=== PATIENT | female | born 1975 | race Caucasian/White ===

== ENCOUNTER → 2016-06-08 | Outpatient (CLI) | payer MEDICARE ==
[~2016-06-08] MED LIST: /ESOM40CA PO; /QUET10TA PO; ADV500INH INH; AMBI10TA PO; BENZ35GEL EXT; BUPR15TA PO; FLEX10TA2 PO; HYDR-3713 PO; KEFL250C6 PO; KLON1TAB PO; METH750T PO; NAPR500T2 PO; PROAAER IN; ULTR50TA PO; VITA500046 PO; ZANA4TAB PO
[2016-06-08 08:43] LABS: MEAN CORPUSCULAR HEMOGLOBIN 30.4 pg (27.0-33.0); MEAN CORPUSCULAR HGB CONC 33.9 g/dl (32.0-36.5); MEAN CORPUSCULAR VOLUME 89.8 fl (80.0-96.0); WHITE BLOOD COUNT 7.7 K/mm3 (4.0-10.0)
--- NOTE | 2016-06-08 12:30 | REP ---
Right upper extremity duplex Doppler venous ultrasound. Real time compression and duplex Doppler evaluation of the right upper extremity deep venous system is performed. The right subclavian, jugular, axillary, brachial, basilic and cephalic veins are fully compressible where accessible with transducer pressure, and demonstrate no intraluminal thrombus and normal venous waveforms. There is no evidence of deep venous thrombosis. No mass or fluid collection is seen in the region of the biceps muscle. At the site of elbow pain no sonographic abnormality is seen. Impression: No evidence of deep venous thrombosis of the right upper extremity deep vein system. Signed by Josafat Mccarty MD 06/08/2016 12:21 P
== END ==
LOC: M RAD 11:25
PROVIDERS: ATTEND Nurse Practitioner Family
DX: Z13.29 Encounter for screening for other suspected endocrine disorder (principal); R22.31 Localized swelling, mass and lump, right upper limb; E78.5 Hyperlipidemia, unspecified; Z79.899 Other long term (current) drug therapy

== ENCOUNTER 2016-11-23 13:38 | Emergency (ER) | payer MEDICARE, MEDICAID ==
[~2016-11-23] VITALS: Ht 165.1 cm; Wt 113.6 kg
[2016-11-23] MEDS ORDERED: NS 500 ML IV ONE (15:15)
[2016-11-23] MEDS ORDERED: ASPIRIN 81 MG CHEW TABLET PO ONE (15:15)
[2016-11-23] MEDS ORDERED: PERCOCET 5MG/325MG TAB PO ONE (15:15)
[2016-11-23 15:23] LABS: BASO # 0.1 K/mm3 (0.0-0.2); BASO % 1.1 % (0.0-1.0); EOS # 0.2 K/mm3 (0.0-0.50); EOS % 2.5 % (0.0-3.0); LARGE UNSTAINED CELL # 0.2 K/mm3 (0.0-0.4); LARGE UNSTAINED CELL % 1.5 % (0.0-4.0); LYMPH % 27.6 % (24.0-44.0); MEAN CORPUSCULAR HEMOGLOBIN 31.1 pg (27.0-33.0); MEAN CORPUSCULAR HGB CONC 35.7 g/dl (32.0-36.5); MEAN CORPUSCULAR VOLUME 87.2 fl (80.0-96.0); MONO # 0.5 K/mm3 (0.0-0.8); MONO % 4.5 % (0.0-5.0); NEUTROPHILS # 6.4 K/mm3 (1.8-7.7); NEUTROPHILS % 62.7 % (36.0-66.0); PLATELET COUNT, AUTOMATED 214 k/mm3 (150-450); RED CELL DISTRIBUTION WIDTH 12.4 % (11.5-14.5); WHITE BLOOD COUNT 10.2 K/mm3 (4.0-10.0)
[2016-11-23 15:36] LABS: ALBUMIN 3.4 GM/DL (3.2-5.2); ALBUMIN/GLOBULIN RATIO 0.89 (1.00-1.93); ALKALINE PHOSPHATASE 78 U/L (45-117); ALT/SGPT 26 U/L (12-78); ANION GAP 5 MEQ/L (8-16); AST/SGOT 22 U/L (15-37); BILIRUBIN,DIRECT < 0.1 MG/DL (0.0-0.2); BILIRUBIN,TOTAL 0.2 MG/DL (0.2-1.0); BLOOD UREA NITROGEN 6 MG/DL (7-18); CARBON DIOXIDE LEVEL 28 MEQ/L (21-32); CHLORIDE LEVEL 108 MEQ/L (98-107); GLOMERULAR FILTRATION RATE > 60.0 (>60); GLUCOSE, FASTING 105 MG/DL (70-105); SODIUM LEVEL 141 MEQ/L (136-145); TOTAL PROTEIN 7.2 GM/DL (6.4-8.2)
[2016-11-23] MEDS ORDERED: ISOVUE-370 76% 100ML VIAL (Q9967) As Ordered ONE (16:06)
--- NOTE | 2016-11-23 17:11 | REP ---
CT pulmonary angiogram: With IV contrast. History: Question pulmonary embolus. Comparison CT study 10/05/2009. Contrast dose: 75 cc's of Isovue [address] technique: Helical scanning is acquired and overlapping 1.5 mm and contiguous 3 mm axial images are reformatted. In addition, a 3-D work station is deployed to generate thick slab maximum intensity projection images in sagittal and coronal imaging projections. CT pulmonary angiographic findings: There is good opacification of the pulmonary arterial tree. There is no CT evidence of pulmonary embolism. Thoracic aorta enhances homogeneously and is normal in caliber and homogeneous in contrast enhancement. No pleural or pericardial effusion is seen. No hilar or mediastinal mass or adenopathy is observed. No infiltrate is seen. There are multiple subcentimeter noncalcified pulmonary nodules bilaterally which are unchanged from the 2009 prior study and are therefore felt to be benign. No new pulmonary nodule is appreciated. No new infiltrate is seen. Clips are noted in the gallbladder fossa post cholecystectomy. No bony destructive lesion is seen. Impression: 1. No CT evidence of pulmonary embolus. 2. Multiple subcentimeter noncalcified pulmonary nodules are all unchanged from the September [address] consistent with benign nodules. 3. Otherwise unremarkable CT pulmonary angiogram. Signed by Murali Sheppard MD 11/23/2016 07:37 P
[2016-11-23 18:34] VITALS: BP 137/74
--- NOTE | 2016-11-25 08:12 | ECGEPIP ---
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
== END 2016-11-23 19:16 | disposition home or self-care (01) ==
LOC: M ED 13:38
DX: R07.9 Chest pain, unspecified (principal); R94.31 Abnormal electrocardiogram [ECG] [EKG]; R91.1 Solitary pulmonary nodule; J45.909 Unspecified asthma, uncomplicated; F17.200 Nicotine dependence, unspecified, uncomplicated; Z79.899 Other long term (current) drug therapy; Z91.040 Latex allergy status; Z88.0 Allergy status to penicillin
CPT/HCPCS: 71275; 80048; 80076; 82550; 82553; 83690; 83880; 84484; 85025; 93005; 93041; 94760; 99285; Q9967

== ENCOUNTER → 2017-07-24 | Outpatient (CLI) | payer MEDICARE, MEDICAID | LOC: M RAD 13:32 | DX: R06.02 Shortness of breath (principal) | CPT/HCPCS: 71046 ==

== ENCOUNTER 2017-09-24 07:49 | Emergency (ER) | payer MEDICARE, MEDICAID ==
[2017-09-24] MEDS: METOCLOPRAMIDE INJ 10MG/2ML VIAL (J2765) IV (08:15)
[2017-09-24] MEDS: NS 1,000 ML IV (08:15)
[2017-09-24 08:33] LABS: BASO % 0.5 % (0.0-1.0); EOS # 0.2 10^3/uL (0.0-0.50); EOS % 2.4 % (0.0-3.0); HEMATOCRIT 41.9 % (36.0-47.0); HEMOGLOBIN 14.8 g/dl (12.0-15.5); IMMATURE GRANULOCYTE % 0.3 % (0-3.0); LYMPH # 1.5 10^3/uL (1.5-4.5); LYMPH % 18.4 % (24.0-44.0); MEAN CORPUSCULAR HEMOGLOBIN 30.8 pg (27.0-33.0); MEAN CORPUSCULAR HGB CONC 35.3 g/dl (32.0-36.5); MEAN CORPUSCULAR VOLUME 87.1 fl (80.0-96.0); MONO # 0.7 10^3/uL (0.0-0.8); MONO % 8.7 % (0.0-5.0); NEUTROPHILS # 5.5 10^3/uL (1.8-7.7); NEUTROPHILS % 69.7 % (36.0-66.0); PLATELET COUNT, AUTOMATED 216 10^3/uL (150-450); RED BLOOD COUNT 4.81 10^6/uL (4.00-5.40); RED CELL DISTRIBUTION WIDTH 11.9 % (11.5-14.5); WHITE BLOOD COUNT 7.9 10^3/uL (4.0-10.0)
[2017-09-24 08:41] LABS: AMORPHOUS SEDIMENT SMALL (NEGATIVE); APPEARANCE, URINE HAZY (CLEAR); BACTERIA, URINE AUTO NEGATIVE (NEGATIVE); BILIRUBIN, URINE AUTO NEGATIVE (NEGATIVE); BLOOD, URINE BLOOD 1+ (NEGATIVE); COLOR, URINE YELLOW (YELLOW); GLUCOSE, URINE (UA) AUTO NEGATIVE (NEGATIVE); KETONE, URINE AUTO NEGATIVE (NEGATIVE); LEUKOCYTE ESTERASE, URINE AUTO NEGATIVE (NEGATIVE); MUCUS, URINE SMALL (NEGATIVE); NITRITE, URINE AUTO NEGATIVE (NEGATIVE); PROTEIN, URINE AUTO NEGATIVE (NEGATIVE); RBC, URINE AUTO 4 /HPF (0-3); SPECIFIC GRAVITY URINE AUTO 1.024 (1.002-1.035); SQUAMOUS EPITHELIAL CELL UR AU 2 /HPF (0-6); WBC, URINE AUTO 1 /HPF (0-3)
[2017-09-24] MEDS: KETOROLAC 30 MG/ML VIAL (J1885) IV (08:45)
[2017-09-24 08:59] LABS: CONTROL LINE UCG INT CTR LINE PRESENT; URINE PREG TEST NEGATIVE (NEGATIVE)
[2017-09-24 09:08] LABS: ALBUMIN 3.5 GM/DL (3.2-5.2); ALBUMIN/GLOBULIN RATIO 0.97 (1.00-1.93); ALKALINE PHOSPHATASE 92 U/L (45-117); ALT/SGPT 45 U/L (12-78); AMYLASE 64 U/L (25-115); ANION GAP 9 MEQ/L (8-16); AST/SGOT 53 U/L (7-37); BILIRUBIN,DIRECT 0.2 MG/DL (0.0-0.2); BILIRUBIN,TOTAL 0.5 MG/DL (0.2-1.0); BLOOD UREA NITROGEN 11 MG/DL (7-18); C REACTIVE PROTEIN QUANTITATIV 1.27 MG/DL (0.00-0.30); CALCIUM LEVEL 8.4 MG/DL (8.5-10.1); CARBON DIOXIDE LEVEL 23 MEQ/L (21-32); CHLORIDE LEVEL 110 MEQ/L (98-107); CPK CREATINE PHOSPHOKINASE 103 U/L (26-192); CREATININE FOR GFR 0.75 MG/DL (0.55-1.30); GLOMERULAR FILTRATION RATE > 60.0 (>58); GLUCOSE, FASTING 108 MG/DL (70-100); LIPASE 573 U/L (73-393); POTASSIUM SERUM 4.2 MEQ/L (3.5-5.1); SODIUM LEVEL 142 MEQ/L (136-145); TOTAL PROTEIN 7.1 GM/DL (6.4-8.2); TROPONIN I < 0.02 NG/ML (< 0.10)
[2017-09-24 09:09] LABS: CK-MB VALUE MASS < 1.0 NG/ML (<3.6); MB/CK RELATIVE INDEX 0.97 (< OR =4)
[2017-09-24] MEDS: GASTROGRAFIN SOLUTION 30ML PO ×2 (09:15→10:00)
[2017-09-24] MEDS ORDERED: ISOVUE-370 76% 100ML VIAL (Q9967) As Ordered (10:18)
== END 2017-09-24 12:22 | disposition home or self-care (01) ==
LOC: M ED 07:49
DX: R10.9 Unspecified abdominal pain (principal); R11.2 Nausea with vomiting, unspecified; R19.7 Diarrhea, unspecified; I45.19 Other right bundle-branch block; R91.8 Other nonspecific abnormal finding of lung field; J45.909 Unspecified asthma, uncomplicated; K21.9 Gastro-esophageal reflux disease without esophagitis; Z72.0 Tobacco use; Z88.0 Allergy status to penicillin; Z91.040 Latex allergy status
CPT/HCPCS: Q9963

== ENCOUNTER → 2017-10-03 | Outpatient (REF) | payer MEDICARE, MEDICAID ==
[2017-10-03 19:49] LABS: CHOLESTEROL LEVEL 164 MG/DL (<200); CHOLESTEROL RISK RATIO 5.125 (<5); HDL CHOLESTEROL 32 MG/DL (>40); NON-HDL-C 132 MG/DL; TRIGLYCERIDES LEVEL 170 MG/DL (<150)
== END ==
LOC: M LAB REF 18:49
DX: R79.89 Other specified abnormal findings of blood chemistry (principal); R10.12 Left upper quadrant pain; R74.8 Abnormal levels of other serum enzymes
CPT/HCPCS: 80061

== ENCOUNTER 2018-02-10 06:12 | Emergency (ER) | payer MEDICARE, MEDICAID ==
[2018-02-10] MEDS: diazePAM 5 MG TAB PO (07:25)
[2018-02-10] MEDS: KETOROLAC 60 MG/2 ML VIAL (J1885) IM (07:26)
[2018-02-10] MEDS: ACETAMINOPH W/CODEINE #3 TAB UD PO ×2 (08:15→08:17)
[2018-02-10] MEDS: methylPREDNISolone INJ 125 MG/2 ML VIAL (J2930) IM (08:29)
== END 2018-02-10 09:04 | disposition home or self-care (01) ==
LOC: M ED 06:12
DX: S39.012A Strain of muscle, fascia and tendon of lower back, initial encounter (principal); X50.0XXA Overexertion from strenuous movement or load, initial encounter; Y92.099 Unspecified place in other non-institutional residence as the place of occurrence of the external cause; Y93.89 Activity, other specified; Y99.9 Unspecified external cause status; K21.9 Gastro-esophageal reflux disease without esophagitis; J45.909 Unspecified asthma, uncomplicated; Z72.0 Tobacco use; Z79.899 Other long term (current) drug therapy; Z88.5 Allergy status to narcotic agent; Z91.040 Latex allergy status; Z88.0 Allergy status to penicillin
CPT/HCPCS: J1885

== ENCOUNTER → 2018-02-15 | Outpatient (CLI) | payer MEDICARE, MEDICAID | LOC: M RAD 14:34 | DX: M51.26 Other intervertebral disc displacement, lumbar region (principal); M12.88 Other specific arthropathies, not elsewhere classified, other specified site; G89.29 Other chronic pain | CPT/HCPCS: 72148 ==

== ENCOUNTER → 2018-02-18 | Outpatient (CLI) | payer MEDICARE ==
[2018-02-18 13:07] LABS: HEMATOCRIT 45.5 % (36.0-47.0); HEMOGLOBIN 15.6 g/dl (12.0-15.5); MEAN CORPUSCULAR HEMOGLOBIN 30.7 pg (27.0-33.0); MEAN CORPUSCULAR HGB CONC 34.3 g/dl (32.0-36.5); MEAN CORPUSCULAR VOLUME 89.6 fl (80.0-96.0); PLATELET COUNT, AUTOMATED 273 10^3/uL (150-450); RED BLOOD COUNT 5.08 10^6/uL (4.00-5.40); WHITE BLOOD COUNT 8.6 10^3/uL (4.0-10.0)
[2018-02-18 13:53] LABS: ESTIMATED AVERAGE GLUCOSE 117 MG/DL (60-110); HEMOGLOBIN A1c 5.7 %
[2018-02-18 14:01] LABS: ALBUMIN 3.4 GM/DL (3.2-5.2); ALBUMIN/GLOBULIN RATIO 0.89 (1.00-1.93); ALKALINE PHOSPHATASE 82 U/L (45-117); ALT/SGPT 24 U/L (12-78); ANION GAP 7 MEQ/L (8-16); AST/SGOT 16 U/L (7-37); BILIRUBIN,TOTAL 0.3 MG/DL (0.2-1.0); BLOOD UREA NITROGEN 7 MG/DL (7-18); CALCIUM LEVEL 8.9 MG/DL (8.5-10.1); CARBON DIOXIDE LEVEL 26 MEQ/L (21-32); CHLORIDE LEVEL 107 MEQ/L (98-107); CHOLESTEROL LEVEL 188 MG/DL (<200); CHOLESTEROL RISK RATIO 6.064 (<5); CREATININE FOR GFR 0.73 MG/DL (0.55-1.30); GLOMERULAR FILTRATION RATE > 60.0 (>58); GLUCOSE, FASTING 79 MG/DL (70-100); HDL CHOLESTEROL 31 MG/DL (>40); LDL CHOLESTEROL 104 MG/DL (<100); NON-HDL-C 157 MG/DL; POTASSIUM SERUM 4.3 MEQ/L (3.5-5.1); SODIUM LEVEL 140 MEQ/L (136-145); TOTAL 25(OH) VITAMIN D 25.3 NG/ML (30.0-100.0); TOTAL PROTEIN 7.2 GM/DL (6.4-8.2); TRIGLYCERIDES LEVEL 267 MG/DL (<150)
== END ==
LOC: M LAB 12:30
DX: I10 Essential (primary) hypertension (principal); E03.9 Hypothyroidism, unspecified
CPT/HCPCS: 71046

== ENCOUNTER → 2018-06-19 | Outpatient (CLI) | payer MEDICARE ==
[~2018-06-19] MED LIST changes: +PRED20TA PO; +ROBA750T4 PO; +TRAM50TA2 PO; +ZOFR4TAB14 PO
--- NOTE | 2018-06-19 14:27 | REPMRS ---
Patient History The patient states she has not had a clinical breast exam in over a year. Family history of breast cancer in maternal cousin, breast cancer at age 60 in paternal aunt, breast cancer in paternal grandmother. 3D TOMOSYNTHESIS WAS PERFORMED. Digital Mammo Screening Bilat: June 19, 2018 - Exam #: [id number] Bilateral CC and MLO view(s) were taken. Technologist: Bailey Allen, Technologist FINDINGS: There are scattered fibroglandular densities. There is no evidence of cancer on this mammogram. Large coarse benign appearing calcifications are present. Assessment: BI-RADS/ACR category 2 mammogram. Benign Findings. Recommendation Routine screening mammogram of both breasts in 1 year (for women over age 40). This mammogram was interpreted with the aid of an FDA-approved computer-aided dectection system. Electronically Signed By: Josafat Mccarty MD 06/19/18 [id number]
== END ==
LOC: M RAD 12:42
PROVIDERS: ATTEND Family Medicine
DX: Z12.31 Encounter for screening mammogram for malignant neoplasm of breast (principal); Z80.3 Family history of malignant neoplasm of breast

== ENCOUNTER → 2018-07-10 | Outpatient (REF) | payer MEDICARE, MEDICAID ==
[~2018-07-10] MED LIST changes: -/ESOM40CA PO; -/QUET10TA PO; +NEXI1CAP3 PO; +SERO1TAB PO
[2018-07-10 13:20] LABS: BASO # 0.1 10^3/uL (0.0-0.2); BASO % 1.3 % (0.0-1.0); EOS # 0.2 10^3/uL (0.0-0.50); EOS % 2.8 % (0.0-3.0); HEMATOCRIT 43.1 % (36.0-47.0); HEMOGLOBIN 14.9 g/dl (12.0-15.5); LYMPH # 2.4 10^3/uL (1.5-4.5); LYMPH % 34.8 % (24.0-44.0); MEAN CORPUSCULAR HEMOGLOBIN 30.5 pg (27.0-33.0); MEAN CORPUSCULAR HGB CONC 34.6 g/dl (32.0-36.5); MEAN CORPUSCULAR VOLUME 88.1 fl (80.0-96.0); MONO # 0.8 10^3/uL (0.0-0.8); MONO % 11.8 % (0.0-5.0); NEUTROPHILS # 3.4 10^3/uL (1.8-7.7); PLATELET COUNT, AUTOMATED 205 10^3/uL (150-450); RED BLOOD COUNT 4.89 10^6/uL (4.00-5.40); WHITE BLOOD COUNT 6.8 10^3/uL (4.0-10.0)
[2018-07-10 13:38] LABS: ALBUMIN 3.6 GM/DL (3.2-5.2); ALT/SGPT 26 U/L (12-78); BILIRUBIN,TOTAL 0.4 MG/DL (0.2-1.0); BLOOD UREA NITROGEN 8 MG/DL (7-18); CALCIUM LEVEL 9.1 MG/DL (8.5-10.1); CARBON DIOXIDE LEVEL 27 MEQ/L (21-32); CHLORIDE LEVEL 104 MEQ/L (98-107); CHOLESTEROL LEVEL 123 MG/DL (<200); CHOLESTEROL RISK RATIO 3.416 (<5); CREATININE FOR GFR 0.82 MG/DL (0.55-1.30); FREE T4 1.18 NG/DL (0.76-1.46); GLOMERULAR FILTRATION RATE > 60.0 (>58); GLUCOSE, FASTING 106 MG/DL (70-100); HDL CHOLESTEROL 36 MG/DL (>40); LDL CHOLESTEROL 64 MG/DL (<100); NON-HDL-C 87 MG/DL; POTASSIUM SERUM 3.5 MEQ/L (3.5-5.1); SODIUM LEVEL 138 MEQ/L (136-145); TRIGLYCERIDES LEVEL 113 MG/DL (<150)
[2018-07-10 13:41] LABS: TOTAL 25(OH) VITAMIN D 30.2 NG/ML (30.0-100.0)
[2018-07-10 13:49] LABS: HEMOGLOBIN A1c 5.6 %
[2018-07-12 00:08] LABS: Lyme Disease IgG/IgM Antibodie <0.91 ISR (0.00-0.90); Lyme Disease IgM Ab Quantitati <0.80 index (0.00-0.79)
== END ==
LOC: M LAB REF 12:41
PROVIDERS: ATTEND Family Medicine
DX: Z00.01 Encounter for general adult medical examination with abnormal findings (principal); Z13.228 Encounter for screening for other metabolic disorders

== ENCOUNTER 2018-10-06 19:00 | Emergency (ER) | payer MEDICARE, MEDICAID ==
[~2018-10-06] VITALS: Ht 165.1 cm; Wt 130.4 kg
[2018-10-06] MEDS ORDERED: MELO15TA28 PO (19:14)
[2018-10-06] MEDS ORDERED: TYLETAB14 PO (19:14)
[2018-10-06] MEDS ORDERED: TIZA4CAP PO (19:14)
[2018-10-06] MEDS ORDERED: SIMV20TA2 PO (19:14)
[2018-10-06] MEDS ORDERED: BENZ200C70 PO (19:14)
[2018-10-06] MEDS ORDERED: LEXA1TAB PO (19:14)
[2018-10-06] MEDS ORDERED: TRIA37.53 PO (19:14)
[2018-10-07 00:18] LABS: BLOOD UREA NITROGEN 10 MG/DL (7-18); CALCIUM LEVEL 8.7 MG/DL (8.5-10.1); CARBON DIOXIDE LEVEL 29 MEQ/L (21-32); CHLORIDE LEVEL 104 MEQ/L (98-107); CREATININE FOR GFR 0.76 MG/DL (0.55-1.30); GLOMERULAR FILTRATION RATE > 60.0 (>58); GLUCOSE, FASTING 89 MG/DL (70-100); POTASSIUM SERUM 3.6 MEQ/L (3.5-5.1); SODIUM LEVEL 141 MEQ/L (136-145)
[2018-10-07 00:37] LABS: BASO # 0.1 10^3/uL (0.0-0.2); BASO % 0.9 % (0.0-1.0); EOS # 0.3 10^3/uL (0.0-0.50); EOS % 2.6 % (0.0-3.0); HEMATOCRIT 40.8 % (36.0-47.0); HEMOGLOBIN 14.5 g/dl (12.0-15.5); LYMPH # 3.8 10^3/uL (1.5-4.5); MEAN CORPUSCULAR HGB CONC 35.5 g/dl (32.0-36.5); MEAN CORPUSCULAR VOLUME 87.4 fl (80.0-96.0); MONO # 0.9 10^3/uL (0.0-0.8); NEUTROPHILS # 4.5 10^3/uL (1.8-7.7); NEUTROPHILS % 47.2 % (36.0-66.0); PLATELET COUNT, AUTOMATED 236 10^3/uL (150-450); RED BLOOD COUNT 4.67 10^6/uL (4.00-5.40); WHITE BLOOD COUNT 9.6 10^3/uL (4.0-10.0)
--- NOTE | 2018-10-07 01:04 | REPVR ---
EXAM: US Duplex Bilateral Lower Extremity Veins EXAM DATE/TIME: 10/06/2018 12:24 AM CLINICAL HISTORY: 43 years old, female; Pain; Leg, upper; Bilateral; Additional info: Bilateral le edema and pain, fam HX of dvt TECHNIQUE: Imaging protocol: Real-time duplex ultrasound of the Bilateral Lower Extremities with 2-D rivas scale, color Doppler flow and spectral waveform analysis. Complete exam focused on the bilateral lower extremity veins. COMPARISON: No relevant prior studies available. FINDINGS: Bilateral common femoral veins, superficial femoral veins (femoral veins), greater saphenous veins and popliteal veins are evaluated. Calf veins distal to the popliteal are not imaged Doppler evaluation shows normal venous flow with respiratory variation and augmentation with distal compression. No intraluminal filling defect. Doppler waveforms and flow directionality are normal. No abnormal focal fluid collections present. IMPRESSION: No evidence of deep venous thrombosis in visualized lower extremity veins. Electronically signed by: Scar Pierre On 10/07/2018 01:03:56 AM
[2018-10-07] MEDS ORDERED: ISOVUE-370 76% 100ML VIAL (Q9967) As Ordered ONE (01:17)
--- NOTE | 2018-10-07 01:41 | REPVR ---
EXAM: CT Angiography Chest With Contrast EXAM DATE/TIME: 10/07/2018 1:10 AM CLINICAL HISTORY: 43 years old, female; Chest pain; Type not specified; Additional info: Chest pain and dyspnea, elevated d dimer TECHNIQUE: Imaging protocol: Axial computed tomographic angiography images of the chest with intravenous contrast using CT angiography protocol. Coronal and sagittal reformatted images were created and reviewed. 3D rendering: MIP reconstructed images were created and reviewed. Radiation optimization: All CT scans Contrast material: ISO; Contrast volume: 75 ml; Contrast route: AC; Other technique: automated exposure control; mA and/or kV adjustment per patient size (includes targeted exams where dose is matched to clinical indication); or iterative reconstruction. COMPARISON: CT ANGIO CHEST 11/23/2016 4:30 PM FINDINGS: Pulmonary arteries: Peripheral pulmonary artery evaluation limited by cardiac and respiratory motion artifact. Central pulmonary arteries show no intraluminal defect suggestive of clot. Aorta: No thoracic aortic aneurysm or dissection. Lungs: Pulmonary vascular/interstitial pattern does not suggest active pulmonary edema. No suspicious lung mass or air space process. No central endobronchial lesion. Pleural space: No pleural effusion or pneumothorax. Heart: No evidence of pericardial effusion. Lymph nodes: No enlarged mediastinal lymph nodes. Bones/joints: Bony structures show no acute fracture or destructive process. Soft tissues: Unremarkable. IMPRESSION: 1. No evidence of acute pulmonary embolus. 2. No other acute or concerning focal intrathoracic abnormality. Electronically signed by: Scar Pierre On 10/07/2018 01:40:44 AM
[2018-10-07 02:00] VITALS: BP 112/56
== END 2018-10-07 02:16 | disposition home or self-care (01) ==
LOC: M ED 19:00
DX: I83.813 Varicose veins of bilateral lower extremities with pain (principal); Z83.2 Family history of diseases of the blood and blood-forming organs and certain disorders involving the immune mechanism; J45.909 Unspecified asthma, uncomplicated; J44.9 Chronic obstructive pulmonary disease, unspecified; K21.9 Gastro-esophageal reflux disease without esophagitis; Z72.0 Tobacco use; Z79.899 Other long term (current) drug therapy; Z88.0 Allergy status to penicillin; Z91.040 Latex allergy status
CPT/HCPCS: 71275; 80048; 85025; 85379; 93970; 99284; Q9967

== ENCOUNTER → 2019-03-20 | Outpatient (REF) | payer MEDICARE, MEDICAID ==
[~2019-03-20] MED LIST changes: +BENZ200C70 PO; +LEXA1TAB PO; +MELO15TA28 PO; +SIMV20TA22 PO; +TIZA4CAP PO; +TRIA37.53 PO; +TYLETAB14 PO
[2019-03-20 12:40] LABS: ALBUMIN 3.5 GM/DL (3.2-5.2); ALT/SGPT 23 U/L (12-78); BILIRUBIN,TOTAL 0.5 MG/DL (0.2-1.0); BLOOD UREA NITROGEN 11 MG/DL (7-18); CALCIUM LEVEL 9.3 MG/DL (8.5-10.1); CARBON DIOXIDE LEVEL 28 MEQ/L (21-32); CHLORIDE LEVEL 103 MEQ/L (98-107); CHOLESTEROL LEVEL 143 MG/DL (<200); CHOLESTEROL RISK RATIO 4.085 (<5); CREATININE FOR GFR 0.86 MG/DL (0.55-1.30); GLOMERULAR FILTRATION RATE > 60.0 (>58); GLUCOSE, FASTING 98 MG/DL (70-100); HDL CHOLESTEROL 35 MG/DL (>40); LDL CHOLESTEROL 88 MG/DL (<100); NON-HDL-C 108 MG/DL; POTASSIUM SERUM 3.8 MEQ/L (3.5-5.1); SODIUM LEVEL 140 MEQ/L (136-145); TOTAL PROTEIN 7.4 GM/DL (6.4-8.2); TRIGLYCERIDES LEVEL 101 MG/DL (<150)
[2019-03-20 12:47] LABS: HEMOGLOBIN A1c 5.8 %
== END ==
LOC: M LAB REF 12:00
PROVIDERS: ATTEND Family Medicine
DX: R73.03 Prediabetes (principal); E78.5 Hyperlipidemia, unspecified

== ENCOUNTER 2019-05-13 16:45 | Emergency (ER) | payer MEDICARE, MEDICAID ==
[~2019-05-13] VITALS: Ht 165.1 cm; Wt 133.5 kg
[2019-05-13 16:46] VITALS: BP 136/77
[2019-05-13] MEDS ORDERED: GABA-843 PO (17:00)
[2019-05-13 17:42] LABS: BASO # 0.1 10^3/uL (0.0-0.2); BASO % 0.8 % (0.0-1.0); EOS # 0.3 10^3/uL (0.0-0.5); EOS % 3.5 % (0.0-3.0); HEMATOCRIT 41.8 % (36.0-47.0); HEMOGLOBIN 14.5 g/dl (12.0-15.5); LYMPH # 3.1 10^3/uL (1.5-5.0); LYMPH % 34.8 % (24.0-44.0); MEAN CORPUSCULAR HGB CONC 34.7 g/dl (32.0-36.5); MEAN CORPUSCULAR VOLUME 89.5 fl (80.0-96.0); MONO # 0.7 10^3/uL (0.0-0.8); MONO % 7.8 % (0.0-5.0); NEUTROPHILS # 4.6 10^3/uL (1.5-8.5); NEUTROPHILS % 52.8 % (36.0-66.0); PLATELET COUNT, AUTOMATED 225 10^3/uL (150-450); RED BLOOD COUNT 4.67 10^6/uL (4.00-5.40); WHITE BLOOD COUNT 8.8 10^3/uL (4.0-10.0)
[2019-05-13 18:08] LABS: HCG, SERUM QUALITATIVE NEGATIVE (NEGATIVE)
[2019-05-13 18:14] LABS: ALBUMIN 3.4 GM/DL (3.2-5.2); ALT/SGPT 48 U/L (12-78); BILIRUBIN,DIRECT 0.1 MG/DL (0.0-0.2); BILIRUBIN,TOTAL 0.2 MG/DL (0.2-1.0); BLOOD UREA NITROGEN 9 MG/DL (7-18); CALCIUM LEVEL 9.3 MG/DL (8.5-10.1); CARBON DIOXIDE LEVEL 28 MEQ/L (21-32); CHLORIDE LEVEL 103 MEQ/L (98-107); CK-MB VALUE MASS 1.2 NG/ML (<3.6); CPK CREATINE PHOSPHOKINASE 235 U/L (26-192); CREATININE FOR GFR 0.78 MG/DL (0.55-1.30); GLOMERULAR FILTRATION RATE > 60.0 (>58); GLUCOSE, FASTING 87 MG/DL (70-100); LIPASE 147 U/L (73-393); MB/CK RELATIVE INDEX 0.51 (< OR =4); POTASSIUM SERUM 3.4 MEQ/L (3.5-5.1); SODIUM LEVEL 139 MEQ/L (136-145); TOTAL PROTEIN 7.1 GM/DL (6.4-8.2); TROPONIN I < 0.02 NG/ML (< 0.10)
--- NOTE | 2019-05-13 20:21 | ECGEPIP ---
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
== END 2019-05-13 18:32 | disposition left against medical advice (07) ==
LOC: M ED 16:45
DX: Z53.21 Procedure and treatment not carried out due to patient leaving prior to being seen by health care provider (principal)

== ENCOUNTER → 2019-06-18 | Outpatient (CLI) | payer MEDICARE, MEDICAID ==
[~2019-06-18] MED LIST changes: +GABA-843 PO; +ISOVUE-370 76% 100ML VIAL (Q9967) As Ordered ONE
--- NOTE | 2019-06-18 15:05 | REPVR ---
PROCEDURE INFORMATION: Exam: CT Head Without And With Contrast Exam date and time: 06/18/2019 2:36 PM Age: 44 years old Clinical indication: Pain; Headache; Migraine; Additional info: Migraine with aura TECHNIQUE: Imaging protocol: Computed tomography of the head without and with intravenous contrast. Radiation optimization: All CT scans at this facility use at least one of these dose optimization techniques: automated exposure control; mA and/or kV adjustment per patient size (includes targeted exams where dose is matched to clinical indication); or iterative reconstruction. Contrast material: ISOVUE 370; Contrast volume: 75 ml; Contrast route: IV; COMPARISON: No relevant prior studies available. FINDINGS: Brain: Examination of the brain demonstrates normal structure and attenuation.The cortical tanner / white matter interfaces are preserved throughout the brain.No acute infarction, masses or hemorrhage is seen. No acute intracranial abnormality is identified.There is no hyperdense MCA sign. Examination of the posterior fossa demonstrates no significant abnormality. Ventricles: The ventricular system is not dilated and is appropriate for the patient's age. Bones/joints: Unremarkable. No acute fracture. Sinuses: Visualized sinuses are unremarkable. No fluid levels. Mastoid air cells: Visualized mastoid air cells are well aerated. Soft tissues: Unremarkable. IMPRESSION: 1. No acute infarction, masses or hemorrhage is seen. No acute intracranial abnormality is identified. 2. No abnormal contrast enhancement is seen. Electronically signed by: Alexis Mccurdy On 06/18/2019 15:05:10 PM
== END ==
LOC: M RAD 14:22
PROVIDERS: ATTEND Family Medicine Addiction Medicine
DX: G43.109 Migraine with aura, not intractable, without status migrainosus (principal)
CPT/HCPCS: 70470; Q9967

== ENCOUNTER 2019-08-17 21:46 | Emergency (ER) | payer MEDICARE, MEDICAID ==
[~2019-08-17] VITALS: Ht 165.1 cm; Wt 126.4 kg
[~2019-08-17 21:46] MED LIST changes: -ISOVUE-370 76% 100ML VIAL (Q9967) As Ordered ONE
[2019-08-17 21:59] VITALS: BP 127/58
[2019-08-17] MEDS ORDERED: NORCO, ANEXSIA 5/325MG TABLET (HYDROcodone/ACETAMINOPHEN) PO ONE (22:30)
--- NOTE | 2019-08-18 00:34 | REP ---
Clinical: Pain and swelling with recent trauma. Technique: AP and lateral views of the left tibia / fibula. Findings: No acute fracture or dislocation. Skeletal structures, joint spaces, and surrounding soft tissues appear normal. Impression: No acute fracture or dislocation. Electronically Signed by Elie Forde MD 08/18/2019 12:26 A
== END 2019-08-17 22:33 | disposition home or self-care (01) ==
LOC: M ED 21:46
DX: S80.10XA Contusion of unspecified lower leg, initial encounter (principal); W18.09XA Striking against other object with subsequent fall, initial encounter; Y92.009 Unspecified place in unspecified non-institutional (private) residence as the place of occurrence of the external cause; I10 Essential (primary) hypertension; F41.9 Anxiety disorder, unspecified; F32.9 Major depressive disorder, single episode, unspecified; E78.5 Hyperlipidemia, unspecified; F17.200 Nicotine dependence, unspecified, uncomplicated; Z90.49 Acquired absence of other specified parts of digestive tract; Z98.890 Other specified postprocedural states; Z79.899 Other long term (current) drug therapy; Z88.0 Allergy status to penicillin; Z91.040 Latex allergy status

== ENCOUNTER → 2019-09-25 | Outpatient (REF) | payer MEDICARE, MEDICAID ==
[2019-09-25 18:02] LABS: BASO # 0.1 10^3/uL (0.0-0.2); BASO % 0.9 % (0.0-1.0); EOS # 0.4 10^3/uL (0.0-0.5); EOS % 4.1 % (0.0-3.0); HEMOGLOBIN 14.6 g/dl (12.0-15.5); LYMPH # 2.8 10^3/uL (1.5-5.0); MEAN CORPUSCULAR HEMOGLOBIN 30.7 pg (27.0-33.0); MEAN CORPUSCULAR HGB CONC 34.8 g/dl (32.0-36.5); MEAN CORPUSCULAR VOLUME 88.4 fl (80.0-96.0); MONO # 0.6 10^3/uL (0.0-0.8); MONO % 6.3 % (0.0-5.0); NEUTROPHILS # 4.9 10^3/uL (1.5-8.5); NEUTROPHILS % 56.5 % (36.0-66.0); PLATELET COUNT, AUTOMATED 251 10^3/uL (150-450); RED BLOOD COUNT 4.75 10^6/uL (4.00-5.40); WHITE BLOOD COUNT 8.7 10^3/uL (4.0-10.0)
[2019-09-25 18:17] LABS: ALBUMIN 3.5 GM/DL (3.2-5.2); ALT/SGPT 23 U/L (12-78); BILIRUBIN,TOTAL 0.4 MG/DL (0.2-1.0); BLOOD UREA NITROGEN 9 MG/DL (7-18); CALCIUM LEVEL 9.4 MG/DL (8.5-10.1); CARBON DIOXIDE LEVEL 28 MEQ/L (21-32); CHLORIDE LEVEL 103 MEQ/L (98-107); CHOLESTEROL LEVEL 134 MG/DL (<200); CHOLESTEROL RISK RATIO 4.322 (<5); GLOMERULAR FILTRATION RATE > 60.0 (>58); GLUCOSE, FASTING 105 MG/DL (70-100); HDL CHOLESTEROL 31 MG/DL (>40); LDL CHOLESTEROL 76 MG/DL (<100); NON-HDL-C 103 MG/DL; POTASSIUM SERUM 3.3 MEQ/L (3.5-5.1); SODIUM LEVEL 139 MEQ/L (136-145); TOTAL PROTEIN 7.3 GM/DL (6.4-8.2); TRIGLYCERIDES LEVEL 134 MG/DL (<150)
[2019-09-25 18:22] LABS: HEMOGLOBIN A1c 5.9 %
== END ==
LOC: M LAB REF 17:03
PROVIDERS: ATTEND Family Medicine Addiction Medicine
DX: Z00.01 Encounter for general adult medical examination with abnormal findings (principal); R58 Hemorrhage, not elsewhere classified; G43.109 Migraine with aura, not intractable, without status migrainosus; M54.5 Low back pain; R73.9 Hyperglycemia, unspecified; E07.9 Disorder of thyroid, unspecified; E78.00 Pure hypercholesterolemia, unspecified

== ENCOUNTER 2021-02-22 20:28 | Emergency (ER) | payer MEDICARE, MEDICAID ==
[~2021-02-22] VITALS: Ht 165.1 cm; Wt 137.3 kg
[~2021-02-22 20:28] MED LIST changes: +GABA-282 PO; -GABA-843 PO
[2021-02-22 20:29] VITALS: BP 118/60
--- OUTSIDE RECORDS SUMMARY | 2021-02-22 20:35 | CCD | Continuity of Care Document ---
Author Author Courtney DILLON DPF[facility] Organization Unknown Address [address] [place] [address], [address] [place] [address] Phone [phone] Care Team Providers Care Art Museum Docent Name Role Phone Cory DO, Ju AUTM [phone] MD Bridger Yen AUTM [phone] Problems Active Problems Provider Date Pain in limb Cory Dillon DPM Onset: 12/05/2020 Callosity Cory Dillon DPM Onset: 12/05/2020 Ingrowing nail Cory Dillon DPM Onset: 12/05/2020 Social History Type Date Description Comments Sex Unknown ETOH Use Denies alcohol use Tobacco Use Start: Unknown Has smoked for 20+ years with 1 PPD habit Allergies and adverse reactions Active Allergies Criticality Reaction | Severity Comments Date Penicillin Unable to assess criticality 07/06/2016 Latex Unable to assess criticality hives 07/06/2016 Medications Active Medications SIG Qnty Indications Ordering Provide r Date Clindamycin HCL 300mg Capsules 1 tab by mouth three times a day 21caps Cory Dillon DPM Ammonium Lactate 12% Cream apply to feet daily 140gm Cory Dillon DPM 11/29/2020 Neomycin/Polymyxin/Hydrocortisone (Otic) 3.5-16944-4 Solution apply one drop to base of nail after betadine soaks 10ml Cory Dillon DPM 11/29/2020 Urea 20 Intensive Hydrating Cream 20% Cream apply to callus on feet daily 85units Cory arana DPM 10/17/2017 Proair HFA 108(90Base) mcg/Act Aer osol Inhale 2 Puffs By Mouth Every 4 Hours If Needed Unknown Gabapentin 300mg Capsules Take 1 Capsule By Mouth Three Times A Day Unknown Ondansetron 4mg Tablets Dispers Dis One T PO Q 6 H prn N Unknown Hydrocodone Bitartrate/Acetaminophen 5-325mg Tablets Take 1 Tablet By Mouth Every 4 To 6 Hour s as Needed For Severe Pain. Maximum Daily Dose Is 3 Tablets Unknown Bupropion Hydrochloride ER (XL) 150mg Tablets ER 24HR Take 1 Tablet By Mouth Every Day Unknown Escitalopram Oxalate 20mg Tablets Take 1 Tablet By Mouth Every Day Unknown Medroxyprogesterone Acetate 150mg/ ml Katina Inject In The Muscle Every 12 Weeks Unknown Simvastatin 20mg Tablets Take 1 Tablet By Mouth Daily Unknown Triamterene/Hydrochlorothiazide 37.5-25mg Capsules Take 1 Capsule By Mouth Daily Unknown Topiramate 50mg Tablets TK 1 T PO QHS Unknown Escitalopram Oxalate 10mg Tablets TK 1 T PO qd Unknown Immunizations Description No Information Available Vital Signs Date Vital Result Comment 11/29/2020 9:21am Height 65 inches 5'5" Weight 278.00 lb BP Systolic 118 mmHg BP Diastolic 62 mmHg Heart Rate 77 /min BMI (Body Mass Index) 46.3 kg/m2 10/17/2017 2:02pm Height 65 inches 5'5" Weight 270.00 lb BP Systolic 150 mmHg BP Diastolic 80 mmHg Heart Rate 80 /min BMI (Body Mass Index) 44.9 kg/m2 Results Description No Information Available Procedures Date Code Description Status 11/29/2020 63296 Office/Outpatient New Low [facility] 30 -44 Minutes Completed 11/29/2020 98621 Excise Nail Bed & Matrix Complet ed 11/29/2020 13958 Excise Nail Bed & Matrix Complet ed Medical Devices Description No Information Available Encounters Type Date Location Provider Dx Diagnosis Office Visit 11/29/2020 9:15a [place] [facility] Cory Dillon DPM M79.676 Pain in unspecified toe(s) L84 Corns and callosities L60.0 Ingrowing nail Assessments Date Code Description Provider 11/29/2020 M79.676 Pain in unspecified toe(s) Caden Dillon DPM 11/29/2020 L84 Corns and callosities Cory Dillon DPM 11/29/2020 L60.0 Ingrowing nail Cory Dillon DPM Plan of Treatment Future Appointment(s):* 02/28/2021 9:30 am - Cory Dillon DPM at [facility] Functional Status Description No Information Available Mental Status Description No Information Available Referrals Description No Information Available
--- OUTSIDE RECORDS SUMMARY | 2021-02-22 20:35 | CCD | Continuity of Care Document ---
Author Author Courtney DILLON DPM Organization Unknown Address [address] [place] [address], [address] [place] [address] Phone [phone] Care Team Providers Care Material Flow Engineer Name Role Phone Cory DO, Ju AUTM [phone] MD Bridger Yen AUTM [phone] Problems Active Problems Provider Date Pain in [...] 140gm Cory Dillon DPM 11/29/2020 Neomycin/Polymyxin/Hydrocortisone (Otic) 3.5-61213-1 Solution apply one drop to base of [...] Available Procedures Date Code Description Status 11/29/2020 78781 Office/Outpatient New Low [facility] 30 -44 Minutes Completed 11/29/2020 27810 Excise Nail Bed & Matrix Complet ed 11/29/2020 35379 Excise Nail Bed & Matrix Complet ed Medical Devices Description No Information Available Encounters Type Date Location Provider Dx Diagnosis Office Visit 12/23/2020 2:15p [place] [facility] Cory Dillon DPM Z48.89 Encounter for other specified surgical aftercare Office Visit 11/29/2020 9:15a [place] [facility] Cory Dillon DPM M79.676 Pain in unspecified toe(s) L84 Corns and callosities L60.0 Ingrowing nail Assessments Date Code Description Provider 12/23/2020 Z48.89 Encounter for other specified [facility] aftercare Cory Dillon DPM 11/29/2020 M79.676 Pain in unspecified toe(s) Caden Dillon DPM 11/29/2020 L84 Corns and callosities Cory Dillon DPM 11/29/2020 L60.0 Ingrowing nail Cory Dillon DPM Plan of Treatment Future Appointment(s):* 02/28/2021 9:30 am - Cory Dillon DPM at [facility] Functional Status Description No Information Available Mental Status Description No Information Available Referrals Description No Information Available
--- OUTSIDE RECORDS SUMMARY | 2021-02-22 20:35 | CCD | Continuity of Care Document ---
Author Author Courtney DILLON DP[facility]ro Organization Unknown Address [address] [place] [address], [address] [place] [address] Phone [phone] Care Team Providers Care Professor Of Oceanography Name Role Phone Cory DO, Ju AUTM [phone] MD Bridger Yen AUTM [phone] Problems Active Problems Provider Date Hammer toe Cory Dillon DPM Onset: 07/23/2016 Dystrophia unguium Cory Dillon DPM Onset: 07/23/2016 Social History Type Date Description Comments Sex Unknown ETOH Use Denies alcohol use Tobacco Use Start: Unknown Has smoked for 20+ years with 1 PPD habit Allergies, Adverse Reactions, Alerts Active Allergies Criticality Reaction | Severity Comments Date Penicillin Unable to assess criticality 07/06/2016 Latex Unable to assess criticality hives 07/06/2016 Medications Active Medications SIG Qnty Indications Ordering Provide r Date Ammonium Lactate 12% Cream apply to feet daily 140gm Cory Dillon DPM 11/29/2020 Neomycin/Polymyxin/Hydrocortisone (Otic) 3.5-16434-4 Solution apply one drop to base of [...] kg/m2 Results Description No Information Available Procedures Description No Information Available Medical Devices Description No Information Available Encounters Description No Information Available Assessments Description No Information Available Plan of Treatment Future Appointment(s):* 02/28/2021 9:30 am - Cory Dillon DPM at [facility] Functional Status Description No Information Available Mental Status Description No Information Available Referrals Description No Information Available
--- OUTSIDE RECORDS SUMMARY | 2021-02-22 20:35 | CCD | Continuity of Care Document ---
Author Author Courtney DILLON DPFlor Organization Unknown Address [address] [place] [address], [address] [place] [address] Phone [phone] Care Team Providers Care Graphite Disk Assembler Name Role Phone Cory DO, Ju AUTM [phone] MD Bridger Yen AUTM [phone] Problems Active Problems Provider Date Hammer toe [...] 140gm Cory Dillon DPM 11/29/2020 Neomycin/Polymyxin/Hydrocortisone (Otic) 3.5-89438-9 Solution apply one drop to base of [...] Available Procedures Date Code Description Status 11/29/2020 40915 Office/Outpatient New Low [facility] 30 -44 Minutes Completed 11/29/2020 38899 Excise Nail Bed & Matrix Complet ed 11/29/2020 14823 Excise Nail Bed & Matrix Complet ed Medical Devices Description No Information Available Encounters Type Date Location Provider Dx Diagnosis Office Visit 11/29/2020 9:15a [place] [facility] Cory Dillon DPM M79.676 Pain in unspecified toe(s) L84 Corns and callosities L60.0 Ingrowing nail Assessments Date Code Description Provider 11/29/2020 M79.676 Pain in unspecified toe(s) Caden Dillon DPM 11/29/2020 L84 Corns and callosities Cory Dillon DPM 11/29/2020 L60.0 Ingrowing nail Cory Dillon DPM Plan of Treatment Future Appointment(s):* 02/28/2021 9:30 am - Cory Dillon DPM at [facility] Functional Status Description No Information Available Mental Status Description No Information Available Referrals Description No Information Available
--- OUTSIDE RECORDS SUMMARY | 2021-02-22 20:35 | CCD | Continuity of Care Document ---
Author Author Courtney DILLON DPFlor Organization Unknown Address [address] [place] [address], [address] [place] [address] Phone [phone] Care Team Providers Care Brazer Resistance Name Role Phone Cory DO, Ju AUTM [phone] MD Bridger Yen AUTM [phone] Problems Active Problems Provider Date Hammer toe [...] 140gm Cory Dillon DPM 11/29/2020 Neomycin/Polymyxin/Hydrocortisone (Otic) 3.5-42594-4 Solution apply one drop to base of [...] 9:30 am - Cory Dillon DPM at [facility] Functional Status Description No Information Available Mental Status Description No Information Available Referrals Description No Information Available
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
--- OUTSIDE RECORDS SUMMARY | 2021-02-22 20:35 | CCD | Continuity of Care Document ---
Author Author Courtney DILLON [facility] Organization Unknown Address [address] [place] [address], [address] [place] [address] Phone [phone] Care Team Providers Care Customer Service Analyst Name Role Phone Cory DO, Ju AUTM [phone] MD Bridger Yen AUTM [phone] Problems Active Problems Provider Date Hammer toe [...] 140gm Cory Dillon DPM 11/29/2020 Neomycin/Polymyxin/Hydrocortisone (Otic) 3.5-16487-2 Solution apply one drop to base of [...] 9:30 am - Cory Dillon DPM at [facility] Functional Status Description No Information Available Mental Status Description No Information Available Referrals Description No Information Available
--- OUTSIDE RECORDS SUMMARY | 2021-02-22 20:36 | CCD ---
Author Author [facility] Organization [facility] Address Unknown Phone Unavailable Care Team Providers Care Promotional Marketing Analyst Name Role Phone Rosio Yen MD Unavailable Unavailable Rosio Yen MD Unavailable Unavailable Rosio Yen MD Unavailable Unavailable Rosio Yen MD Unavailable Unavailable Rosio Yen MD Unavailable Unavailable Rosio Yen MD Unavailable Unavailable Rosio Yen MD Unavailable Unavailable Rosio Yen MD Unavailable Unavailable Rosio Yen MD Unavailable Unavailable Rosio Yen MD Unavailable Unavailable Rosio Yen MD Unavailable Unavailable Rosio Yen MD Unavailable Unavailable Rosio Yen MD Unavailable Unavailable Rosio Yen MD Unavailable Unavailable Rosio Yen MD Unavailable Unavailable Rosio Yen MD Unavailable Unavailable Rosio Yen MD Unavailable Unavailable Rosio Yen MD Unavailable Unavailable Rosio Yen MD Unavailable Unavailable Rosio Yen MD Unavailable Unavailable Rosio Yen MD Unavailable Unavailable Rosio Yen MD Unavailable Unavailable Rosio Yen MD Unavailable Unavailable Rosio Yen MD Unavailable Unavailable Rosio Yen MD Unavailable Unavailable Rosio Yen MD Unavailable Unavailable Rosio Yen MD Unavailable Unavailable Rosio Yen MD Unavailable Unavailable Rosio Yen MD Unavailable Unavailable Rosio Yen MD Unavailable Unavailable Rosio Yen MD Unavailable Unavailable Rosio Yen MD Unavailable Unavailable Rosio Yen MD Unavailable Unavailable Rosio Yen MD Unavailable Unavailable Rosio Yen MD Unavailable Unavailable Rosio Yen MD Unavailable Unavailable Rosio Yen MD Unavailable Unavailable Rosio Yen MD Unavailable Unavailable Rosio Yen MD Unavailable Unavailable Rosio Yen MD Unavailable Unavailable Rosio Yen MD Unavailable Unavailable Rosio Yen MD Unavailable Unavailable Rosio Yen MD Unavailable Unavailable Rosio Yen MD Unavailable Unavailable Rosio Yen MD Unavailable Unavailable Rosio Yen MD Unavailable Unavailable Rosio Yen MD Unavailable Unavailable Rosio Yen MD Unavailable Unavailable Rosio Yen MD Unavailable Unavailable Rosio Yen MD Unavailable Unavailable Rosio Yen MD Unavailable Unavailable Rosio Yen MD Unavailable Unavailable Rosio Yen MD Unavailable Unavailable Rosio Yen MD Unavailable Unavailable Rosio Yen MD Unavailable Unavailable Rosio Yen MD Unavailable Unavailable Rosio Yen MD Unavailable Unavailable Rosio Yen MD Unavailable Unavailable Rosio Yen MD Unavailable Unavailable Rosio Yen MD Unavailable Unavailable Rosio Yen MD Unavailable Unavailable Rosio Yen MD Unavailable Unavailable Rosio Yen MD Unavailable Unavailable Rosio Yen MD Unavailable Unavailable Rosio Yen MD Unavailable Unavailable Rosio Yen MD Unavailable Unavailable Rosio Yen MD Unavailable Unavailable Rosio Yen MD Unavailable Unavailable Rosio Yen MD Unavailable Unavailable Rosio Yen MD Unavailable Unavailable Rosio Yen MD Unavailable Unavailable Rosio Yen MD Unavailable Unavailable Rosio Yen MD Unavailable Unavailable Rosio Yen MD Unavailable Unavailable Farshad, Rosio Sparks MD Unavailable Unavailable Farshad, Rosio Sparks MD Unavailable Unavailable Farshad, Rosio Sparks MD Unavailable Unavailable Farshad, Rosio Sparks MD Unavailable Unavailable Farshad, Rosio Sparks MD Unavailable Unavailable Farshad, Rosio Sparks MD Unavailable Unavailable Farshad, Rosio Sparks MD Unavailable Unavailable Farshad, Rosio Sparks MD Unavailable Unavailable Rosio Yen MD Unavailable Unavailable Farshad, Rosio Sparks MD Unavailable Unavailable Farshad, Rosio Sparks MD Unavailable Unavailable Farshad, Rosio Saprks MD Unavailable Unavailable Yen, Rosio Sparks MD Unavailable Unavailable Yen, Rosio Sparks MD Unavailable Unavailable Yen, Rosio Sparks MD Unavailable Unavailable Yen, Rosio Sparks MD Unavailable Unavailable Yen, Rosio Sparks MD Unavailable Unavailable Farshad, Rosio Sparks MD Unavailable Unavailable Yen, Rosio Sparks MD Unavailable Unavailable Kathrine Zelaya Unavailable Kathrine Zelaya Unavailable MAJAGUS, R ROXANA DPM Unavailable Unavailable MAJAK, R ROXANA DPM Unavailable Unavailable MAJAK, R ROXANA DPM Unavailable Unavailable MAJAK, R ROXANA DPM Unavailable Unavailable MAJAK, R ROXANA DPM Unavailable Unavailable MAJAK, R ROXANA DPM Unavailable Unavailable MAJAK, R ROXANA DPM Unavailable Unavailable MAJAK, R ROXANA DPM Unavailable Unavailable MAJAK, R ROXANA DPM Unavailable Unavailable MAJAK, R ROXANA DPM Unavailable Unavailable MAJAK, R ROXANA DPM Unavailable Unavailable MAJAK, R ROXANA DPM Unavailable Unavailable MAJAK, R ROXANA DPM Unavailable Unavailable MAJAK, R ROXANA DPM Unavailable Unavailable MAJAK, R ROXANA DPM Unavailable Unavailable MAJAK, R ROXANA DPM Unavailable Unavailable MAJAK, R ROXANA DPM Unavailable Unavailable MAJAK, R ROXANA DPM Unavailable Unavailable MAJAK, R ROXANA DPM Unavailable Unavailable MAJAK, R ROXANA DPM Unavailable Unavailable MAJAK, R ROXANA DPM Unavailable Unavailable MAJAK, R ROXANA DPM Unavailable Unavailable MAJAK, R ROXANA DPM Unavailable Unavailable MAJAK, R ROXANA DPM Unavailable Unavailable MAJAK, R ROXANA DPM Unavailable Unavailable MAJAK, R ROXANA DPM Unavailable Unavailable MAJAK, R ROXANA DPM Unavailable Unavailable MAJAK, R ROXANA DPM Unavailable Unavailable MAJAK, R ROXANA DPM Unavailable Unavailable MAJAK, R ROXANA DPM Unavailable Unavailable MAJAK, R ROXANA DPM Unavailable Unavailable MAJAK, R ROXANA DPM Unavailable Unavailable Rosio Yen MD Unavailable Unavailable Rosio Yen MD Unavailable Unavailable Rosio Yen MD Unavailable Unavailable Rosio Yen MD Unavailable Unavailable Rosio Yen MD Unavailable Unavailable Rosio Yen MD Unavailable Unavailable Rosio Yen MD Unavailable Unavailable Rosio Yen MD Unavailable Unavailable Rosio Yen MD Unavailable Unavailable Rosio Yen MD Unavailable Unavailable Rosio Yen MD Unavailable Unavailable Rosio Yen MD Unavailable Unavailable Rosio Yen MD Unavailable Unavailable Rosio Yen MD Unavailable Unavailable Rosio Yen MD Unavailable Unavailable Rosio Yen MD Unavailable Unavailable Rosio Yen MD Unavailable Unavailable Rosio Yen MD Unavailable Unavailable Rosio Yen MD Unavailable Unavailable Rosio Yen MD Unavailable Unavailable Rosio Yen MD Unavailable Unavailable Rosio Yen MD Unavailable Unavailable Rosio Yen MD Unavailable Unavailable Rosio Yen MD Unavailable Unavailable Rosio Yen MD Unavailable Unavailable Rosio Yen MD Unavailable Unavailable Rosio Yen MD Unavailable Unavailable Rosio Yen MD Unavailable Unavailable Rosio Yen MD Unavailable Unavailable Rosio Yen MD Unavailable Unavailable Rosio Yen MD Unavailable Unavailable Rosio Yen MD Unavailable Unavailable Rosio Yen MD Unavailable Unavailable Rosio Yen MD Unavailable Unavailable Rosio Yen MD Unavailable Unavailable Rosio Yen MD Unavailable Unavailable Rosio Yen MD Unavailable Unavailable Rosio Yen MD Unavailable Unavailable Rosio Yen MD Unavailable Unavailable Rosio Yen MD Unavailable Unavailable Rosio Yen MD Unavailable Unavailable Rosio Yen MD Unavailable Unavailable Rosio Yen MD Unavailable Unavailable Rosio Yen MD Unavailable Unavailable Rosio Yen MD Unavailable Unavailable Rosio Yen MD Unavailable Unavailable Rosio Yen MD Unavailable Unavailable Rosio Yen MD Unavailable Unavailable Rosio Yen MD Unavailable Unavailable Rosio Yen MD Unavailable Unavailable Rosio Yen MD Unavailable Unavailable Rosio Yen MD Unavailable Unavailable Rosio Yen MD Unavailable Unavailable Rosio Yen MD Unavailable Unavailable Rosio Yen MD Unavailable Unavailable Rosio Yen MD Unavailable Unavailable Rosio Yen MD Unavailable Unavailable Rosio Yen MD Unavailable Unavailable Rosio Yen MD Unavailable Unavailable Rosio Yen MD Unavailable Unavailable Rosio Yen MD Unavailable Unavailable Rosio Yen MD Unavailable Unavailable Rosio Yen MD Unavailable Unavailable Rosio Yen MD Unavailable Unavailable Rosio Yen MD Unavailable Unavailable Rosio Yen MD Unavailable Unavailable Rosio Yen MD Unavailable Unavailable Rosio Yen MD Unavailable Unavailable Rosio Yen MD Unavailable Unavailable Rosio Yen MD Unavailable Unavailable Rosio Yen MD Unavailable Unavailable YenRosio MD Unavailable Unavailable Yne, Rosio Sparks MD Unavailable Unavailable Yen, D Bridger MD Unavailable Unavailable Yen, D Bridger MD Unavailable Unavailable Yen, D Bridger MD Unavailable Unavailable Yen, D Bridger MD Unavailable Unavailable Yen, D Bridger MD Unavailable Unavailable Yen, D Bridger MD Unavailable Unavailable Yen, D Bridger MD Unavailable Unavailable Yen, D Bridger MD Unavailable Unavailable Yen, D Bridger MD Unavailable Unavailable Yen, D Bridger MD Unavailable Unavailable Yen, D Bridger MD Unavailable Unavailable Yen, D Bridger MD Unavailable Unavailable Yen, D Bridger MD Unavailable Unavailable Yen, D Bridger MD Unavailable Unavailable Yen, D Bridger MD Unavailable Unavailable Yen, D Bridger MD Unavailable Unavailable Yen, D Bridger MD Unavailable Unavailable Yen, D Bridger MD Unavailable Unavailable Yen, D Bridger MD Unavailable Unavailable Yen, D Bridger MD Unavailable Unavailable Re-disclosure Warning The records that you are about to access may contain information from federally-assisted alcohol or drug abuse programs. If such information is present, then the following federally mandated warning applies: This information has been disclosed to you from records protected by federal confidentiality rules (42 CFR part 2). The federal rules prohibit you from making any further disclosure of this information unless further disclosure is expressly permitted by the written consent of the person to whom it pertains or as otherwise permitted by 42 CFR part 2. A general authorization for the release of medical or other information is NOT sufficient for this purpose. The Federal rules restrict any use of the information to criminally investigate or prosecute any alcohol or drug abuse patient.The records that you are about to access may contain highly sensitive health information, the redisclosure of which is protected by Article 27-F of the [facility] Public Health law. If you continue you may have access to information: Regarding HIV / AIDS; Provided by facilities licensed or operated by the [facility] Office of Mental Health; or Provided by the [facility] Office for People With Developmental Disabilities. If such information is present, then the following [facility] mandated warning applies: This information has been disclosed to you from confidential records which are protected by state law. State law prohibits you from making any further disclosure of this information without the specific written consent of the person to whom it pertains, or as otherwise permitted by law. Any unauthorized further disclosure in violation of state law may result in a fine or nursing home sentence or both. A general authorization for the release of medical or other information is NOT sufficient authorization for further disc losure. Family History Family Member Name Family Member Gender Family Member Status Date o f Status Description Data Source(s) Unknown Male Problem [facility] ([facility]) Unknown Male Problem [facility] ([facility] Encounters Encounter Providers Location Date Indications Data Source(s ) Bridger Yen MD: [address] [place] [phone], Ph. Attender: Bridger Yen MD [facility] Medical 02/01/2021 12:00:00 AM EDT [facility] ([facility]) Office Visit Attender: ROXANA DILLON [facility] Office 12/01 02:15:00 PM EDT [facility] ([facility] Outpatient 11/29/2020 06:48:14 PM EDT - 021 08:33:02 PM EDT [facility] ([facility]) Outpatient Attender: ROXANA DILLON [facility] Office 11/01 09:15:00 AM EDT [facility] ([facility] Bridger Yen MD: [address] [place], [place] [phone], Ph. Attender: Bridger Yen MD [facility] Medical 11/09/2020 12:00:00 AM EDT [facility] ([facility]) Bridger Yen MD: [address] [place] [phone], Ph. Attender: Bridger Yen MD [facility] Medical 11/09/2020 12:00:00 AM EDT [facility] ([facility]) Bridger Yen MD: [address] [place] [phone], Ph. Attender: Bridger Yen MD [facility] Medical 10/28/2020 12:00:00 AM EDT [facility] ([facility]) Bridger Yen MD: [address] [place] [address], Ph. Attender: Bridger Yen MD [facility] Medical 10/28/2020 12:00:00 AM EDT [facility] ([facility]) Bridger Yen MD: [address] [place] [address], Ph. Attender: Bridger Yen MD [facility] Medical 10/28/2020 12:00:00 AM EDT [facility] ([facility]) Bridger Yen MD: [address] [place] [address], Ph. Attender: Bridger Yen MD [facility] Medical 10/07/2020 12:00:00 AM EDT [facility] ([facility]) Bridger Yen MD: [address] [place] [address], Ph. Attender: Bridger Yen MD [facility] Medical 10/07/2020 12:00:00 AM EDT [facility] ([facility]) Bridger Yen MD: [address] [place] [address], Ph. Attender: Bridger Yen MD [facility] Medical 10/07/2020 12:00:00 AM EDT [facility] ([facility]) Bridger Yen MD: [address] [place] [address], Ph. Attender: Bridger Yen MD [facility] Medical 10/07/2020 12:00:00 AM EDT [facility] ([facility]) Bridger Yen MD: [address] [place] [address]2 [address], Ph. Attender: Bridger Yen MD [facility] Medical 08/08/2020 12:00:00 AM EDT [facility] ([facility]) Bridger Yen MD: [address] [place] [address], Ph. Attender: Bridger Yen MD [facility] Medical 08/08/2020 12:00:00 AM EDT [facility] ([facility]) Bridger Yen MD: [address] [place] [address], Ph. Attender: Bridger Yen MD [facility] Medical 08/08/2020 12:00:00 AM EDT [facility] ([facility]) Bridger Yen MD: [address] [place] [address], Ph. Attender: Bridger Yen MD [facility] Medical 08/08/2020 12:00:00 AM EDT [facility] ([facility]) Bridger Yen MD: [address] [place] [address], Ph. Attender: Bridger Yen MD [facility] Medical 08/08/2020 12:00:00 AM EDT [facility] ([facility]) Bridger Yen MD: [address] [place] [address], Ph. Attender: Bridger Yen MD [facility] Medical 06/30/2020 12:00:00 AM EDT [facility] ([facility]) Kathrine Zelaya [facility]: [address] [place] [address], Ph. Attender: Kathrine Zelaya [facility] Medical 06/30/2020 12:00:00 AM EDT [facility] ([facility]) Bridger Yen MD: [address] [place] [address], Ph. Attender: Bridger Yen MD [facility] Medical 06/30/2020 12:00:00 AM EDT [facility] ([facility]) Kathrine Zelaya LMSW: [address] [place] [address], Ph. Attender: Kathrine Zelaya [facility] Medical 06/30/2020 12:00:00 AM EDT [facility] ([facility]) Bridger Yen MD: [address] [place] [address], Ph. Attender: Bridger Yen MD [facility] Medical 06/30/2020 12:00:00 AM EDT [facility] ([facility]) Kathrine Zelaya LMSW: [address] [place] [address], Ph. Attender: Kathrine Zelaya [facility] Medical 06/30/2020 12:00:00 AM EDT [facility] ([facility]) Bridger Yen MD: [address] [place] [address]1 [address], Ph. Attender: Bridger Yen MD [facility] Medical 06/30/2020 12:00:00 AM EDT [facility] ([facility]) Kathrine Zelaya LMSW: [address] [place] [address], Ph. Attender: Kathrine Zelaya [facility] Medical 06/30/2020 12:00:00 AM EDT [facility] ([facility]) Bridger Yen MD: [address] [place] [address], Ph. Attender: Bridger Yen MD [facility] Medical 06/30/2020 12:00:00 AM EDT [facility] ([facility]) Kathrine Zelaya LMSW: [address] [place] [address], Ph. Attender: Kathrine Zelaya [facility] Medical 06/30/2020 12:00:00 AM EDT [facility] ([facility]) Bridger Yen MD: [address] [place] [address], Ph. Attender: Bridger Yen MD [facility] Medical 06/30/2020 12:00:00 AM EDT [facility] ([facility]) Kathrine Zelaya, [facility]: [address] [place] [address], Ph. Attender: Kathrine Zelaya [facility] Medical 06/30/2020 12:00:00 AM EDT [facility] ([facility]) Bridger Yen MD: [address] [place] [address], Ph. Attender: Bridger Yen MD [facility] Medical 05/09/2020 12:00:00 AM EST [facility] ([facility]) Bridger Yen MD: [address] [place] [address], Ph. Attender: Bridger Yen MD [facility] Medical 05/09/2020 12:00:00 AM EST [facility] ([facility]) Bridger Yen MD: [address] [place] [address], Ph. Attender: Bridger Yen MD [facility] Medical 05/09/2020 12:00:00 AM EST [facility] ([facility]) Bridger Yen MD: [address] [place] [address], Ph. Attender: Bridger Yen MD [facility] Medical 05/09/2020 12:00:00 AM EST [facility] ([facility]) Bridger Yen MD: [address] [place] [address], Ph. Attender: Bridger Yen MD [facility] Medical 05/09/2020 12:00:00 AM EST [facility] ([facility]) Bridger Yen MD: [address] [place] [address], Ph. Attender: Bridger Yen MD [facility] Medical 05/09/2020 12:00:00 AM EST [facility] ([facility]) Bridger Yen MD: [address] [place] [address], Ph. Attender: Bridger Yen MD [facility] Medical 05/09/2020 12:00:00 AM EST [facility] ([facility]) Bridger Yen MD: [address] [place] [address], Ph. Attender: Bridger Yen MD [facility] Medical 04/15/2020 12:00:00 AM EST [facility] ([facility]) Bridger Yen MD: [address] [place] [address], Ph. Attender: Bridger Yen MD [facility] Medical 04/15/2020 12:00:00 AM EST [facility] ([facility]) Bridger Yen MD: [address] [place] [address], Ph. Attender: Bridger Yen MD [facility] Medical 04/15/2020 12:00:00 AM EST [facility] ([facility]) Bridger Yen MD: [address] [place] [address], Ph. Attender: Bridger Yen MD [facility] Medical 04/15/2020 12:00:00 AM EST [facility] ([facility]) Bridger Yen MD: [address] [place] [address], Ph. Attender: Bridger Yen MD [facility] Medical 04/15/2020 12:00:00 AM EST [facility] ([facility]) Bridger Yen MD: [address] [place] [address], Ph. Attender: Bridger Yen MD [facility] Medical 04/15/2020 12:00:00 AM EST [facility] ([facility]) Bridger Yen MD: [address] [place] [address], Ph. Attender: Bridger Yen MD [facility] Medical 04/15/2020 12:00:00 AM EST [facility] ([facility]) Bridger Yen MD: [address] [place] [address], Ph. Attender: Bridger Yen MD [facility] Medical 04/15/2020 12:00:00 AM EST [facility] ([facility]) Outpatient Attender: Bridger Yen MD 01/27/2020 05:21:00 PM EDT [facility] Outpatient Attender: Bridger Yen MD 01/05/2020 01:19:01 PM EDT [facility] Outpatient Attender: Bridger Yen MD 12/25/2019 01:23:59 PM EDT [facility] Outpatient Attender: Bridger Yen MD 12/25/2019 11:23:00 AM EDT [facility] Immunizations Vaccine Date Status Description Data Source(s) New in 2011. IIV4 02/01/2021 12:06:00 PM EDT completed .5 mL [facility] ([facility]) COVID-19 VACCINE Moderna 10/10/2020 12:00:00 AM EDT completed SDSIIS Vaccine Series Complete: YESThis Data wa s Submitted to [facility] Via [employer]. COVID-19 VACCINE Moderna 09/12/2020 12:00:00 AM EDT completed NYSIIS Vaccine Series Complete: NOThis Data was Submitted to [facility] Via [employer]. New in 2011. IIV4 12/25/2019 12:00:00 AM EDT completed 0.5 mL [facility] ([facility]) New in 2011. IIV4 12/25/2019 12:00:00 AM EDT completed 0.5 mL [facility] ([facility]) New in 2011. IIV4 12/25/2019 12:00:00 AM EDT completed 0.5 mL [facility] ([facility]) New in 2011. IIV4 12/25/2019 12:00:00 AM EDT completed 0.5 mL [facility] ([facility]) New in 2011. IIV4 12/25/2019 12:00:00 AM EDT completed 0.5 mL [facility] ([facility]) New in 2011. IIV4 12/25/2019 12:00:00 AM EDT completed 0.5 mL [facility] ([facility]) New in 2011. IIV4 12/25/2019 12:00:00 AM EDT completed .5 mL [facility] ([facility]) Medications Medication Brand Name Start Date Product Form Dose Route Admi nistrative Instructions Pharmacy Instructions Status Indications Reaction Description Data Source(s) Clindamycin 300 MG Oral Capsule Clindamycin HCL 12/23/2020 12:00:00 A M EDT ORAL active [facility] ammonium lactate 120 MG/ML Topical Cream Ammonium Lactate 11/29/2020 12:00:00 AM EDT active [facility] ([facility] Hydrocortisone 10 MG/ML / Neomycin 3.5 M G/ML / Polymyxin B 52218 UNT/ML Otic Solution Neomycin/Polymyxin/Hydrocortisone (Otic) 11/29/2020 12:00:00 AM EDT active [facility] ([facility] Azithromycin 250 MG Oral Tablet azithrom ycin 250 mg tablet TK 2 TS PO FOR 1 DAY THEN TK 1 T PO D FOR 4 DAYS azithromycin 250 mg tablet TK 2 TS PO FO R 1 DAY THEN TK 1 T PO D FOR 4 DAYS completed azithromycin 250 MG Oral Tablet [facility] ([facility]) Azithromycin 250 MG Oral Tablet azithrom ycin 250 mg tablet TK 2 TS PO FOR 1 DAY THEN TK 1 T PO D FOR 4 DAYS azithromycin 250 mg tablet TK 2 TS PO FO R 1 DAY THEN TK 1 T PO D FOR 4 DAYS completed azithromycin 250 MG Oral Tablet [facility] ([facility]) Azithromycin 250 MG Oral Tablet azithrom ycin 250 mg tablet TK 2 TS PO FOR 1 DAY THEN TK 1 T PO D FOR 4 DAYS azithromycin 250 mg tablet TK 2 TS PO FO R 1 DAY THEN TK 1 T PO D FOR 4 DAYS completed azithromycin 250 MG Oral Tablet [facility] ([facility]) Escitalopram 10 MG Oral Tablet escitalopram 10 mg tabl et TK 1 T PO QD escitalopram 10 mg tablet TK 1 T PO QD completed escitalopram 10 MG Oral Tablet [facility] ([facility]) varenicline 1 MG Oral Tablet Chantix Con tinuing Month Box 1 mg tablet TK UTD AFTER STARTER PACK IS COMPLETED Chantix Continuing Month Box 1 mg tablet TK UTD AFTER STARTER PACK IS COMPLETED comple ramírez varenicline 1 MG Oral Tablet [facility] ([facility]) Azithromycin 250 MG Oral Tablet azithrom ycin 250 mg tablet TK 2 TS PO FOR 1 DAY THEN TK 1 T PO D FOR 4 DAYS azithromycin 250 mg tablet TK 2 TS PO FO R 1 DAY THEN TK 1 T PO D FOR 4 DAYS completed azithromycin 250 MG Oral Tablet [facility] ([facility]) Azithromycin 250 MG Oral Tablet azithrom ycin 250 mg tablet TK 2 TS PO FOR 1 DAY THEN TK 1 T PO D FOR 4 DAYS azithromycin 250 mg tablet TK 2 TS PO FO R 1 DAY THEN TK 1 T PO D FOR 4 DAYS completed azithromycin 250 MG Oral Tablet [facility] ([facility]) Escitalopram 10 MG Oral Tablet escitalopram 10 mg tabl et TK 1 T PO QD escitalopram 10 mg tablet TK 1 T PO QD completed escitalopram 10 MG Oral Tablet [facility] ([facility]) Ciprofloxacin 3 MG/ML / Dexamethasone 1 MG/ML Otic Suspension [Ciprodex] Ciprodex 0.3 %-0.1 % ear drops,suspension INT 3 DROPS INTO EACH EAR CANAL TID FOR 7 DAYS Ciprodex 0.3 %-0.1 % ear drops,suspensio n INT 3 DROPS INTO EACH EAR CANAL TID FOR 7 DAYS completed ciprofloxacin 3 MG/ML / dexamethasone 1 MG/ML Otic Suspension [Ciprodex] [facility] ([facility]) Ciprofloxacin 3 MG/ML / Dexamethasone 1 MG/ML Otic Suspension [Ciprodex] Ciprodex 0.3 %-0.1 % ear drops,suspension INT 3 DROPS INTO EACH EAR CANAL TID FOR 7 DAYS Ciprodex 0.3 %-0.1 % ear drops,suspensio n INT 3 DROPS INTO EACH EAR CANAL TID FOR 7 DAYS completed ciprofloxacin 3 MG/ML / dexamethasone 1 MG/ML Otic Suspension [Ciprodex] [facility] ([facility]) Cyclobenzaprine hydrochloride 10 MG Oral Tablet cyclobenzaprine 10 mg tablet TK 1 T PO TID PRF SPASMS cyclobenzaprine 10 mg tablet TK 1 T PO TID PRF SPASMS completed cyclobenzaprine hydroc hloride 10 MG Oral Tablet [facility] ([facility]) Cyclobenzaprine hydrochloride 10 MG Oral Tablet cyclobenzaprine 10 mg tablet TK 1 T PO TID PRF SPASMS cyclobenzaprine 10 mg tablet TK 1 T PO TID PRF SPASMS completed cyclobenzaprine hydroc hloride 10 MG Oral Tablet [facility] ([facility]) Cyclobenzaprine hydrochloride 10 MG Oral Tablet cyclobenzaprine 10 mg tablet TK 1 T PO TID PRF SPASMS cyclobenzaprine 10 mg tablet TK 1 T PO TID PRF SPASMS completed cyclobenzaprine hydroc hloride 10 MG Oral Tablet [facility] ([facility]) Azithromycin 250 MG Oral Tablet azithrom ycin 250 mg tablet TK 2 TS PO FOR 1 DAY THEN TK 1 T PO D FOR 4 DAYS azithromycin 250 mg tablet TK 2 TS PO FO R 1 DAY THEN TK 1 T PO D FOR 4 DAYS completed [facility] 250 [facility] Hydrocortisone 10 MG/ML / Neomycin 3.5 M G/ML / Polymyxin B 45229 UNT/ML Otic Solution vumckgcp-fptmeqvcj-fperuekfe 3.5 mg/mL-10,000 unit/mL-1 % ear solution dulrerxc-mxkaydjxy-wzkqcsuih 3.5 mg/mL-10,000 unit/mL-1 % ear solution completed hydrocortisone 10 MG/ML / neomycin 3.5 MG/ML / polymyxin B 48031 UNT/ML Otic Solution [facility]) Ciprofloxacin 3 MG/ML / Dexamethasone 1 MG/ML Otic Suspension [Ciprodex] Ciprodex 0.3 %-0.1 % ear drops,suspension INT 3 DROPS INTO EACH EAR CANAL TID FOR 7 DAYS Ciprodex 0.3 %-0.1 % ear drops,suspensio n INT 3 DROPS INTO EACH EAR CANAL TID FOR 7 DAYS completed ciprofloxacin 3 MG/ML / dexamethasone 1 MG/ML Otic Suspension [Ciprodex] [facility]) Hydrocortisone 10 MG/ML / Neomycin 3.5 M G/ML / Polymyxin B 95013 UNT/ML Otic Solution zqthlttf-hzhhoggrn-wqultbnsk 3.5 mg/mL-10,000 unit/mL-1 % ear solution mtnticep-lmhccvzan-epugyxeky 3.5 mg/mL-10,000 unit/mL-1 % ear solution completed hydrocortisone 10 MG/ML / neomycin 3.5 MG/ML / polymyxin B 13081 UNT/ML Otic Solution [facility] ([facility]) Ciprofloxacin 3 MG/ML / Dexamethasone 1 MG/ML Otic Suspension [Ciprodex] Ciprodex 0.3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 ([facility]) Eosinophils [#/volume] in Blood by Automated count 242 cells/uL 15- 500 Absolute Eosinophils [facility] ([facility]) Basophils [#/volume] in Blood by Automated count 81 cells/uL 0-200 Absolute Basophils [facility] ([facility]) Monocytes [#/volume] in Blood by Automated count 717 cells/uL 200-9 50 Absolute Monocytes [facility] ([facility]) Neutrophils/100 leukocytes in Blood by Automated count 55.9 % 38-80 Neutrophils [facility] ([facility]) Basophils/100 leukocytes in Blood by Automated count 0.8 % 0-2 Basophils [facility] ([facility]) Lymphocytes/100 leukocytes in Blood by Automated count 33.8 % 15-49 Lymphocytes [facility] ([facility]) Eosinophils/100 leukocytes in Blood by Automated count 2.4 % 0-8 Eosinophils [facility] ([facility]) Monocytes/100 leukocytes in Blood by Automated count 7.1 % 0-13 Monocytes [facility] ([facility]) ID Date Data Source [id number] 10/07/2020 11:15:00 AM EDT [facility]) Name Value Range Interpretation Code Description Data Marina rce(s) Supporting Document(s) Glucose [Mass/volume] in Serum or Plasma 107 mg/dL 65-99 Above high normal Glucose WALDO ([facility]) Urea nitrogen [Mass/volume] in Serum or Plasma 14 mg/dL 7-25 Urea Nitrogen (BUN) WALDO ([facility]) Glomerular filtration rate/1.73 sq M.pre dicted among non-blacks [Volume Rate/Area] in Serum, Plasma or Blood by Creatinine-based formula (CKD-EPI) 99 mL/min/1.73m2 > or = 60 eGFR Non-afr. Indian WALDO ([facility]) Glomerular filtration rate/1.73 sq M.pre dicted among blacks [Volume Rate/Area] in Serum, Plasma or Blood by Creatinine-based formula (CKD-EPI) 115 mL/min/1.73m2 > or = 60 eGFR WALDO ([facility]) Creatinine [Mass/volume] in Serum or Plasma 0.74 mg/dL 0.50-1.10 Creatinine [facility] ([facility]) Urea nitrogen/Creatinine [Mass Ratio] in Serum or Plasma not applic able 6-22 BUN/creatinine Ratio WALDO ([facility]) Potassium [Moles/volume] in Serum or Plasma 4.3 mmol/L 3.5-5.3 Potassium WAL[facility] ([facility]) Sodium [Moles/volume] in Serum or Plasma 138 mmol/L 135-146 Sodium WALDO ([facility]) Chloride [Moles/volume] in Serum or Plasma 105 mmol/L 98-110 Chloride WALDO ([facility]) Carbon dioxide, total [Moles/volume] in Serum or Plasma 24 mmol/L 20-32 Carbon Dioxide WALDO ([facility]) Calcium [Mass/volume] in Serum or Plasma 9.5 mg/dL 8.6-10.2 Calcium WALDO ([facility]) Protein [Mass/volume] in Serum or Plasma 6.8 g/dL 6.1-8.1 Protein, Total WALDO ([facility]) Albumin/Globulin [Mass Ratio] in Serum or Plasma 1.4 (calc) 1.0-2 .5 Albumin/globulin Ratio IRWIN ([facility]) Globulin [Mass/volume] in Serum by calculation 2.8 g/dL_(calc) 1.9- 3.7 Globulin IRWIN ([facility]) Albumin [Mass/volume] in Serum or Plasma 4.0 g/dL 3.6-5.1 Albumin IRWIN ([facility]) Aspartate aminotransferase [Enzymatic activity/volume] in Serum or Plasma 14 U/L 10-30 Ast WALDO ([facility]) Alkaline phosphatase [Enzymatic activity/volume] in Serum or Plasma 71 U/L 31-125 Alkaline Phosphatase [facility]DO ([facility]) Alanine aminotransferase [Enzymatic activity/volume] in Seru m or Plasma 16 U/L 6-29 Alt IRWIN ([facility]) Bilirubin.total [Mass/volume] in Serum or Plasma 0.3 mg/dL 0.2-1 .2 Bilirubin, Total WALDO ([facility]) ID Date Data Source [id number] 10/07/2020 11:15:00 AM EDT IRWIN ([facility]) Name Value Range Interpretation Code Description Data Marina rce(s) Supporting Document(s) Cholesterol [Mass/volume] in Serum or Plasma 124 mg/dL <200 Cholesterol, Total IRWIN ([facility]) Cholesterol in LDL [Mass/volume] in Serum or Plasma by calculation 66 mg/dL_(calc) <100 LDL-cholesterol WALDO ([facility]) Cholesterol in HDL [Mass/volume] in Serum or Plasma 34 mg/dL > or = 50 Below low normal HDL Cholesterol [facility] ([facility]) Triglyceride [Mass/volume] in Serum or Plasma 154 mg/dL <150 Above high normal Triglycerides WALDO ([facility]) Lipoprotein.beta.subparticle [Moles/volume] in Serum or Plas ma 1101 nmol/L <1138 LDL Particle Number WALDO ([facility]) Cholesterol.total/Cholesterol in HDL [Mass Ratio] in Serum o r Plasma 3.6 calc <5.0 Chol/hdlc Ratio [facility]DO ([facility]) Cholesterol non HDL [Mass/volume] in Serum or Plasma 90 mg/dL_(calc ) <130 Non HDL Cholesterol W[facility]DO ([facility]) Lipoprotein.alpha.subparticle.large [Moles/volume] in Serum or Plasma 5614 nmol/L >6729 Below low normal HDL Large W[facility] ([facility]) Lipoprotein.alpha 3 [Moles/volume] in Serum 186 nmol/L <215 LDL Medium [facility] Lipoprotein.beta.subparticle.small [Moles/volume] in Serum o r Plasma 245 nmol/L <142 Above high normal LDL Small W[facility] ([facility]) Cholesterol in LDL real size pattern [Identifier] in Serum or Pl asma B A Abnormal (applies to non-numeric results) LDL Pattern [facility]DO ([facility]) Lipoprotein a [Moles/volume] in Serum or Plasma 30 nmol/L <75 Lipoprotein (a) [facility]ALDO ([facility]) Lipoprotein.beta.subparticle [Entitic length] in Serum or Pl asma 212.7 angstrom >222.9 Below low normal LDL Peak Size W[facility]DO ([facility]) Apolipoprotein B [Mass/volume] in Serum or Plasma 68 mg/dL Apolipoprotein B [facility] ([facility]) ID Date Data Source [id number] 10/07/2020 11:15:00 AM EDT [facility] Name Value Range Interpretation Code Description Data Marina rce(s) Supporting Document(s) HIV 1+2 Ab+HIV1 p24 Ag [Presence] in Serum or Plasma b y Immunoassay non-reactive non-reactive HIV Ag/Ab, 4TH Gen [facility]) ID Date Data Source [id number] 10/07/2020 11:15:00 AM EDT [facility]) Name Value Range Interpretation Code Description Data Marina rce(s) Supporting Document(s) Triiodothyronine resin uptake (T3RU) in Serum or Plasma 30 % 22 -35 T3 Uptake IRWIN ([facility]) Thyroxine (T4) [Mass/volume] in Serum or Plasma 7.4 mcg/dL 5.1-11 .9 T4 (Thyroxine), Total [facility]) Thyroxine (T4) free index in Serum or Plasma by calculation 1.4-3.8 Free T4 Index (T7) [facility]) Thyrotropin [Units/volume] in Serum or Plasma 1.40 mIU/L Tsh [facility]) ID Date Data Source [id number] 10/07/2020 11:15:00 AM EDT [facility]) Name Value Range Interpretation Code Description Data Marina rce(s) Supporting Document(s) Hepatitis C virus Ab [Presence] in Serum or Plasma by Immuno assay non-reactive non-reactive [facility] Hepatitis C virus Ab Signal/Cutoff in Serum or Plasma by Immunoassa y <1.00 Index [facility]) ID Date Data Source [id number] 10/07/2020 11:15:00 AM EDT [facility]) Name Value Range Interpretation Code Description Data Marina rce(s) Supporting Document(s) Erythrocytes [#/volume] in Blood by Automated count 4.92 million/uL 3.80-5.10 Red Blood Cell Count [facility]) Leukocytes [#/volume] in Blood by Automated count 10.1 thousand/uL 3.8-10.8 White Blood Cell Count [facility] ([facility]) Hemoglobin [Mass/volume] in Blood 14.9 g/dL 11.7-15.5 He moglobin WALDO ([facility]) Erythrocyte mean corpuscular hemoglobin [Entitic mass] by Automated count 30.3 pg 27.0-33.0 Mch [facility]AL[facility] ([facility]) Hematocrit [Volume Fraction] of Blood by Automated count 43.6 % 35.0-45.0 Hematocrit [facility] ([facility]) Erythrocyte mean corpuscular hemoglobin concentration [Mass/volume] by Automated count 34.2 g/dL 32.0-36.0 Mchc [facility] ([facility]) Erythrocyte mean corpuscular volume [Entitic volume] by Auto mated count 88.6 fL 80.0-100.0 Mcv [facility] ([facility]) Platelet mean volume [Entitic volume] in Blood by Dom 12. 7 fL 7.5-12.5 Above high normal Mpv [facility] ([facility]) Erythrocyte distribution width [Ratio] by Automated count 12.4 % 11.0-15.0 Rdw [facility] ([facility]) Platelets [#/volume] in Blood by Automated count 271 thousand/uL 14 0-400 Platelet Count [facility] ([facility]) Eosinophils [#/volume] in Blood by Automated count 242 cells/uL 15- 500 Absolute Eosinophils [facility] ([facility]) Neutrophils [#/volume] in Blood by Automated count 5646 cells/uL 15 00-7800 Absolute Neutrophils [facility] ([facility]) Lymphocytes [#/volume] in Blood by Automated count 3414 cells/uL 85 0-3900 Absolute Lymphocytes [facility] ([facility]) Monocytes [#/volume] in Blood by Automated count 717 cells/uL 200-9 50 Absolute Monocytes [facility] ([facility]) Basophils [#/volume] in Blood by Automated count 81 cells/uL 0-200 Absolute Basophils [facility] ([facility]) Lymphocytes/100 leukocytes in Blood by Automated count 33.8 % 15-49 Lymphocytes [facility] ([facility]) Neutrophils/100 leukocytes in Blood by Automated count 55.9 % 38-80 Neutrophils [facility] ([facility]) Monocytes/100 leukocytes in Blood by Automated count 7.1 % 0-13 Monocytes [facility] ([facility]) Eosinophils/100 leukocytes in Blood by Automated count 2.4 % 0-8 Eosinophils [facility] ([facility]) Basophils/100 leukocytes in Blood by Automated count 0.8 % 0-2 Basophils IR[facility] ([facility]) ID Date Data Source [id number] 10/07/2020 11:15:00 AM EDT IRWIN ([facility]) Name Value Range Interpretation Code Description Data Marina rce(s) Supporting Document(s) Urea nitrogen [Mass/volume] in Serum or Plasma 14 mg/dL 7-25 Urea Nitrogen (BUN) [facility] ([facility]) Glucose [Mass/volume] in Serum or Plasma 107 mg/dL 65-99 Above high normal Glucose IR[facility] ([facility]) Glomerular filtration rate/1.73 sq M.pre dicted among non-blacks [Volume Rate/Area] in Serum, Plasma or Blood by Creatinine-based formula (CKD-EPI) 99 mL/min/1.73m2 > or = 60 eGFR Non-afr. Indian [facility] ([facility]) Creatinine [Mass/volume] in Serum or Plasma 0.74 mg/dL 0.50-1.10 Creatinine IR[facility] ([facility]) Glomerular filtration rate/1.73 sq M.pre dicted among blacks [Volume Rate/Area] in Serum, Plasma or Blood by Creatinine-based formula (CKD-EPI) 115 mL/min/1.73m2 > or = 60 eGFR [facility] ([facility]) Sodium [Moles/volume] in Serum or Plasma 138 mmol/L 135-146 Sodium [facility] ([facility]) Urea nitrogen/Creatinine [Mass Ratio] in Serum or Plasma not applic able 6-22 BUN/creatinine Ratio [facility] ([facility]) Carbon dioxide, total [Moles/volume] in Serum or Plasma 24 mmol/L 20-32 Carbon Dioxide IR[facility] ([facility]) Potassium [Moles/volume] in Serum or Plasma 4.3 mmol/L 3.5-5.3 Potassium [facility] ([facility]) Chloride [Moles/volume] in Serum or Plasma 105 mmol/L 98-110 Chloride [facility] ([facility]) Calcium [Mass/volume] in Serum or Plasma 9.5 mg/dL 8.6-10.2 Calcium [facility] ([facility]) Protein [Mass/volume] in Serum or Plasma 6.8 g/dL 6.1-8.1 Protein, Total [facility] ([facility]) Albumin/Globulin [Mass Ratio] in Serum or Plasma 1.4 (calc) 1.0-2 .5 Albumin/globulin Ratio [facility] ([facility]) Albumin [Mass/volume] in Serum or Plasma 4.0 g/dL 3.6-5.1 Albumin IRWIN ([facility]) Globulin [Mass/volume] in Serum by calculation 2.8 g/dL_(calc) 1.9- 3.7 Globulin IR[facility] ([facility]) Bilirubin.total [Mass/volume] in Serum or Plasma 0.3 mg/dL 0.2-1 .2 Bilirubin, Total [facility] ([facility]) Alkaline phosphatase [Enzymatic activity/volume] in Serum or Plasma 71 U/L 31-125 Alkaline Phosphatase IR[facility] ([facility]) Aspartate aminotransferase [Enzymatic activity/volume] in Serum or Plasma 14 U/L 10-30 Ast [facility] ([facility]) Alanine aminotransferase [Enzymatic activity/volume] in Seru m or Plasma 16 U/L 6-29 Alt [facility] ([facility]) ID Date Data Source [id number] 10/07/2020 11:15:00 AM EDT [facility] ([facility]) Name Value Range Interpretation Code Description Data Marina rce(s) Supporting Document(s) Triglyceride [Mass/volume] in Serum or Plasma 154 mg/dL <150 Above high normal Triglycerides [facility] ([facility]) Cholesterol in HDL [Mass/volume] in Serum or Plasma 34 mg/dL > or = 50 Below low normal HDL Cholesterol [facility] ([facility]) Cholesterol [Mass/volume] in Serum or Plasma 124 mg/dL <200 [facility] Cholesterol.total/Cholesterol in HDL [Mass Ratio] in Serum o r Plasma 3.6 calc <5.0 Chol/hdlc Ratio [facility] ([facility]) Cholesterol in LDL [Mass/volume] in Serum or Plasma by calculation 66 mg/dL_(calc) <100 LDL-cholesterol [facility] ([facility]) Cholesterol non HDL [Mass/volume] in Serum or Plasma 90 mg/dL_(calc ) <130 Non HDL Cholesterol IR[facility] ([facility]) Lipoprotein.beta.subparticle [Moles/volume] in Serum or Plas ma 1101 nmol/L <1138 LDL Particle Number IR[facility] ([facility]) Lipoprotein.alpha 3 [Moles/volume] in Serum 186 nmol/L <215 LDL Medium [facility]) Lipoprotein.beta.subparticle.small [Moles/volume] in Serum o r Plasma 245 nmol/L <142 Above high normal LDL Small [facility] ([facility]) Lipoprotein.beta.subparticle [Entitic length] in Serum or Pl asma 212.7 angstrom >222.9 Below low normal LDL Peak Size IRWIN ([facility]) Lipoprotein.alpha.subparticle.large [Moles/volume] in Serum or Plasma 5614 nmol/L >6729 Below low normal HDL Large [facility] ([facility]) Cholesterol in LDL real size pattern [Identifier] in Serum or Pl asma B A Abnormal (applies to non-numeric results) LDL Pattern [facility] ([facility]) Apolipoprotein B [Mass/volume] in Serum or Plasma 68 mg/dL Apolipoprotein B IR[facility] ([facility]) Lipoprotein a [Moles/volume] in Serum or Plasma 30 nmol/L <75 Lipoprotein (a) IR[facility] ([facility]) ID Date Data Source [id number] 10/07/2020 11:15:00 AM EDT [facility]) Name Value Range Interpretation Code Description Data Marina rce(s) Supporting Document(s) HIV 1+2 Ab+HIV1 p24 Ag [Presence] in Serum or Plasma b y Immunoassay non-reactive non-reactive HIV Ag/Ab, 4TH Gen [facility]AL[facility] ([facility]) ID Date Data Source [id number] 10/07/2020 11:15:00 AM EDT WAL[facility] ([facility]) Name Value Range Interpretation Code Description Data Marina rce(s) Supporting Document(s) Triiodothyronine resin uptake (T3RU) in Serum or Plasma 30 % 22 -35 T3 Uptake [facility] ([facility]) Thyroxine (T4) [Mass/volume] in Serum or Plasma 7.4 mcg/dL 5.1-11 .9 T4 (Thyroxine), Total [facility] ([facility]) Thyroxine (T4) free index in Serum or Plasma by calculation 1.4-3.8 Free T4 Index (T7) [facility] ([facility]) Thyrotropin [Units/volume] in Serum or Plasma 1.40 mIU/L Tsh [facility] ([facility]) ID Date Data Source [id number] 05/09/2020 09:52:00 AM EST IR[facility] ([facility]) Name Value Range Interpretation Code Description Data Marina rce(s) Supporting Document(s) HCG negative Hcg [facility] ([facility]) ID Date Data Source [id number] 05/09/2020 09:52:00 AM EST [facility]) Name Value Range Interpretation Code Description Data Marina rce(s) Supporting Document(s) HCG negative Hcg IR[facility] ([facility]) ID Date Data Source [id number] 05/09/2020 09:52:00 AM EST [facility] ([facility]) Name Value Range Interpretation Code Description Data Marina rce(s) Supporting Document(s) HCG negative Hcg IR[facility] ([facility]) ID Date Data Source [id number] 05/09/2020 09:52:00 AM EST [facility] ([facility]) Name Value Range Interpretation Code Description Data Marina rce(s) Supporting Document(s) HCG negative Hcg [facility] ([facility]) ID Date Data Source [id number] 05/09/2020 09:52:00 AM EST [facility] ([facility]) Name Value Range Interpretation Code Description Data Marina rce(s) Supporting Document(s) HCG negative Hcg [facility] ([facility]) ID Date Data Source [id number] 05/09/2020 09:52:00 AM EST [facility] ([facility]) Name Value Range Interpretation Code Description Data Marina rce(s) Supporting Document(s) HCG negative Hcg [facility] ([facility]) ID Date Data Source [id number] 12/25/2019 11:28:46 AM EDT [facility] Measurements & CalculationsHeight: 64.75 inches 164.47 cm 5 ft. 4.75 in.Weight: 285.6 pounds 129.82 kg Body Mass Index (BMI): 48.07BMI Interpretation: Morbidly ObeseBody Surface Area (BSA): 2.30Weight Management Education Done (Nutrition/Physical Activity)Vital SignsTemperature: 98.3F 36.83C Pulse Rate: 79 beats/minuteRespiratory Rate: 16 respirations/minuteBlood Pressure: 127/79 O2 Saturation: 98% Vital Signs performed by: Shilpi Fernandez MA, December 25, 2019 11:40 AMVital Signs performed by: Shilpi Fernandez MA, December 25, 2019 11:40 AMInitial Intake Information From: patientRoom #: 13Infectious Disease / Travel ScreeningRecent travel for you or any close contacts? NoHave you had any close contact with anyone diagnosed with or under investigation for COVID-19 (coronavirus)? NoFever? NoRespiratory symptoms: cough, cold, congestion, shortness of breath, difficulty breathing? NoLoss of smell? NoLoss of taste? NoSmoking, Tobacco, Vaping or Smoke Exposure StatusSmoke Status: current every day smokerTobacco Use: YesAdv to Quit: YesDo you vape? NoPassive Smoke Exposure: YesPassive Smoke Exposure comments: , fatherMenstrual HistoryAny possibility of ? NoComments: depoHealthcare HistorySince your last office visit...Have you been admitted to the hospital? No - [facility]- Legs, feet burning, chest painHave you been to an emergency room (ER) or urgent care clinic? No - [facility] fallEmergency room (ER) or urgent care date reported today: 08/17/2019Have you seen another healthcare provider? No - orthoHave you seen a dentist? Yes - NOCODental exam date reported today: 05/2015Intake performed by: Shilpi Fernandez MA, December 25, 2019 11:32 AMRate Your HealthIn general, would you say your health is? GoodPain AssessmentAre you currently having any pain which... You would like your provider to address? Yes Affects your activity level? YesDepression Screening - PHQ-2Over the last two weeks, have you... Had little interest or pleasure in doing things? Not at all Been feeling down, depressed, or hopeless? Not at all PHQ-2 Score: 0Anxiety Screening - KATE-2Over the last two weeks, have you been... Feeling nervous, anxious, or on edge? More than half the days Unable to stop or control worrying? Nearly every day KATE-2 Score: 5Food Insecuri tyWithin the past year...Did you worry whether your food would run out before you got money to buy more? Never trueWas there a time when the food you bought didn't last and you didn't have money to get more? Never trueGeneralized Anxiety Disorder 7-Item Screening (KATE-7)Answer Guide:0 = Not at all1 = Several days2 = Over half the days3 = Nearly every dayOver the last 2 weeks, how often have you been bothered by the following problems?Feeling nervous, anxious, or on edge: 2Not being able to stop or control worryinWorrying too much about different things: 3Trouble relaxinBeing so restless that it's hard to sit still: 3Becoming easily annoyed or irritable: 3Feeling afraid as if something awful might happen: 0Answer Guide:0 = Not difficult at all1 = Somewhat difficult2 = Very difficult3 = Extremely difficultHow difficult have these made it for you to do your work, take care of things at home, or get along with other people? 2GAD-7 Screening Results KATE-2 Score: 5GAD-7 Score: 17Functional Impairment: Very difficultRecommendation: Severe anxietyPain AssessmentPain ScaleNumeric Rating Scale: 6 / 10Location: backDuration: chronicFrequency: DailyCharacter/Quality: aching, sharp, stabbing, pressure and stingingScreening, Brief Intervention, & Referral to Treatment (SBIRT)Pre-Screening Questions How many times have you have 4 or more drinks in a day? 0How many times have you used an illegal drug or used a prescription medication for a non-medical reason? 0Performed by: Shilpi Fernandez MA, December 25, 2019 11:36 AMPatient History Medical History:AsthmaAnxiety DisorderDepressionRheumatoid ArthritisVaricose Veins/PhlebitisCervical CancerG E R DHypertensionNo good Cholesterol per pt Surgical History:dentalCholecystectomyD+C 1996, 1999Family History:Family History of AlcoholismFamily History of ArthritisFH of AnxietyFamily History of AsthmaFamily History of DefectsFH Breast CancerFH DepressionFH DiabetesFH High CholesterolFH Lung/Respiratory DiseaseFH MigrainesFH OsteoporosisFH SeizuresFH Other CancerFamily History of Cervical CancerFH HeadachesFH Lung CancerFH Psychiatric CareFH Weight DisorderSocial/Personal History:Smoking History:Patient currently smokes every day.Patient has been counseled to quit. Advised to Quit/Tobacco Education: YesChief Complaintfollow-up visit chronic pain room 13History of Present Illness (HPI)44 YO femaile here for chronic pain follow up. Patient would like to discuss anxiety medication as well. Patient would like a flu vaccine. She was getting some relief with the Lexapro 10 mg daily but this has lost its effect over the past several months. No thoughts of self harm.Pain is under good control. She spoke with Ortho at a phone visit 3 months ago and there were no changes made to her care.HPI performed by: Bridger Yen MD, December 25, 2019 1 :19 PMTransitions of Care InboundProblem ReviewProblem List was reviewed and/or updated during this visit.Medication Reconciliation & ReviewMedication List was reviewed and/or updated during this visit, including review of any [id number] medications, herbal therapies, and/or supplements.Allergy ReviewAllergy List was reviewed and/or updated during this visit.Adult Preventive CareProvider Calculated and Reviewed all Clinical Protocols for patient today. Screening Tobacco Screening: Smoking Status: current every day smoker (12/25/2019) Tobacco Use: Currently (12/25/2019) Advised to Quit: Yes (12/25/2019)Labs/Meds/Other Counseling-Nutrition and Physical Activity:BMI Interpretation: Morbidly Obese (12/25/2019) Counseling: Done (12/25/2019) Physical Activity: Done (12/25/2019)Cancer Screening Pap Smear/HPV TestingReviewed: Previous Comments: last pap 2019 woman to woman (06/10/2019)Review of Systems General: Denies dizziness, fatigue. Cardiovascular: Denies chest pain. Respiratory: Denies shortness of breath. Gastrointestinal: Denies diarrhea, constipation. Physical ExamGeneral Appearance: well nourished, well hydrated, no acute distressRespiratory, Auscultation: clear to auscultation bilaterally; no rales, rhonchi, or wheezesRespiratory, Effort: no intercostal retractions or use of accessory musclesCardiovascular, Auscultation: S1, S2 audible; no murmur, rub, or gallop; RRRGait & Station: normalSkin, Inspection: no rashes, lesions, or ulcerationsOrientation: oriented to time, place, and personMood & Affect: no depression, anxiety, or agitationJudgment & Insight: intactCare Management Plan Transitions of CareInboundRate Your HealthIn general, would you say your health is? GoodAssessment & Plan Problems:Assessed:Anxiety disorder, unspecified ([id number]-R61.9) Assessment: Instructions: Partial remission. Increase Lexapro from 10 mg to 20 mg daily.Patient Instructions/Care Plan: Anxiety disorder- unspecified: Partial remission. Increase Lexapro from 10 mg to 20 mg daily. Plan developed in collaboration with patient and/or familyMedications:ESCITALOPRAM OXALATE 20 MG ORAL TABLETTOPAMAX 50 MG ORAL TABLETVENTOLIN HFA 108 (90 BASE) MCG/ACT INHALATION AEROSOL SOLUTIONGABAPENTIN 300 MG ORAL CAPSULEHYDROCODONE-ACETAMINOPHEN 5-325 MG ORAL TABLETMOBIC 15 MG ORAL TABLETSIMVASTATIN 20 MG ORAL TABLETTRIAMTERENE-HCTZ 37.5-25 MG ORAL CAPSULEDEPO-PROVERA 150 MG/ML INTRAMUSCULAR SUSPENSION PREFILLED SYRINGEALBUTEROL SULFATE (2.5 MG/3ML) 0.083% INHALATION NEBULIZATION SOLUTIONNEBULIZERMedication Changes:New Prescription:ESCITALOPRAM OXALATE 20 MG ORAL TABLET-One tablet by mouth every day Qty: 30[Tablet] Refills: 2 Method: ElectronicAllergies:PENICILLIN (Severe)* LATEX (Severe)Orders:Adult - Ofc Vst, EST, Level III [CPT-83244] Follow-Up Return to clinic: 1 month for follow upMedications:ESCITALOPRAM OXALATE 20 MG ORAL TABLET (ESCITALOPRAM OXALATE) One tablet by mouth every day #30[Tablet] x 2 Route:ORAL Entered and Authorized by: Bridger Yen MD Method [facility] [address] [place] [address] Note to Pharmacy: Route: ORAL; RxID: [id number] patient was counseled by the physician on immunizations due, and on the risks and benefits of immunizations.Adult Questionnaire1) Does the patient have a long-term health problem with heart disease, lung disease, asthma, kidney disease, metabolic disease (e.g., diabetes), anemia, or other blood disorder? No2) Does the patient have allergies to medications, food, a vaccine component, or latex? No3) Does the patient have cancer, leukemia, AIDS, or any other immune system problem? No4) Does the patient live with or expect to have close contact with a person whose immune system is severely compromised and who must be in protective isolation (e.g., an isolation room of a bone marrow transplant unit)? No5) Does the patient take cortisone, prednisone, other steroids, or anticancer drugs, or has the patient had radiation treatments? No6) During the past year, has the patient received a transfusion of blood or blood products, or been given immune (gamma) globulin or an antiviral drug? No7) For women: Is the patient or is there a chance she could become during the next month? No8) Has the patient ever had a serious reaction to a vaccine in the past? No9) Has the patient had a seizure or a brain or other nervous system problem? No10) Has the patient received any vaccinations in the past 4 weeks? No11) Is the patient older than age 49 years? No12) Is the patient sick today? No13) Vaccine information given and explained to patient? YesVaccines Admin istered/Entered:Vaccination Group: InfluenzaSeries: 1Vaccination: Flulaval Quadrivalent Intramuscular Suspension Prefilled Syringe 0.5 MLMfr / Lot# / Exp.Date: [employer] / [id number] 1Amt. Given / Route / Site: 0.5 mL / IM / Left DeltoidNDC / CVX: [id number] / 150Administered Date: 12/25/2019 12:55VFC Eligibility: Not VFC EligibleFunding Source: Giftly FundsVIS Date: 11/13/2018VIS Given / VIS Given On: Yes 12/25/2019Comments: Administered by: Deni Estrada LPN Name Value Range Interpretation Code Description Data Marina rce(s) Supporting Document(s) Procedure Social History No Information Vital Signs ID Date Data Source UNK Name Value Range Interpretation Code Description Data Source(s) Systolic blood pressure 115 mm[Hg] 115 mm[Hg] A THENA ([facility]) Diastolic blood pressure 81 mm[Hg] 81 mm[Hg] WALDO ([facility]) Body height 64.75 [in_i] 64.75 [in_i] WALDO ([facility]) Body mass index (BMI) [Ratio] 50.7 kg/m2 50.7 k g/m2 WALDO ([facility]) Body weight 4840 [oz_av] 4840 [oz_av] WALDO ([facility]) Heart rate 77 /min 77 /min MEDENT ([facility] Body mass index (BMI) [Ratio] 46.3 kg/m2 46.3 k g/m2 MEDENT ([facility] Body height 65 [in_i] 65 [in_i] MEDENT ([facility] 5'5" Body weight 278.00 [lb_av] 278.00 [lb_av] MEDEN T ([facility] Systolic blood pressure 118 mm[Hg] 118 mm[Hg] M EDENT ([facility] Diastolic blood pressure 62 mm[Hg] 62 mm[Hg] MEDENT ([facility] Body height 64.75 [in_i] 64.75 [in_i] WALDO ([facility]) Body height 64.75 [in_i] 64.75 [in_i] WALDO ([facility]) Body height 64.75 [in_i] 64.75 [in_i] WALDO ([facility]) Diastolic blood pressure 76 mm[Hg] 76 mm[Hg] WALDO ([facility]) Body height 64.75 [in_i] 64.75 [in_i] WALDO ([facility]) Body mass index (BMI) [Ratio] 48.8 kg/m2 48.8 k g/m2 WALDO ([facility]) Systolic blood pressure 120 mm[Hg] 120 mm[Hg] A THENA ([facility]) Body weight 4658 [oz_av] 4658 [oz_av] WALDO ([facility]) Diastolic blood pressure 76 mm[Hg] 76 mm[Hg] WALDO ([facility]) Body height 64.75 [in_i] 64.75 [in_i] WALDO ([facility]) Body mass index (BMI) [Ratio] 48.8 kg/m2 48.8 k g/m2 WALDO ([facility]) Systolic blood pressure 120 mm[Hg] 120 mm[Hg] [facility] Body weight 4658 [oz_av] 4658 [oz_av] WALDO ([facility]) Diastolic blood pressure 76 mm[Hg] 76 mm[Hg] WALDO ([facility]) Body height 64.75 [in_i] 64.75 [in_i] WALDO ([facility]) Body mass index (BMI) [Ratio] 48.8 kg/m2 48.8 k g/m2 WALDO ([facility]) Systolic blood pressure 120 mm[Hg] 120 mm[Hg] A THENA ([facility]) Body weight 4658 [oz_av] 4658 [oz_av] WALDO ([facility]) Diastolic blood pressure 76 mm[Hg] 76 mm[Hg] WALDO ([facility]) Body height 64.75 [in_i] 64.75 [in_i] WALDO ([facility]) Body mass index (BMI) [Ratio] 48.8 kg/m2 48.8 k g/m2 WALDO ([facility]) Systolic blood pressure 120 mm[Hg] 120 mm[Hg] A THENA ([facility]) Body weight 4658 [oz_av] 4658 [oz_av] WALDO ([facility]) Diastolic blood pressure 76 mm[Hg] 76 mm[Hg] WALDO ([facility]) Body height 64.75 [in_i] 64.75 [in_i] WALDO ([facility]) Body mass index (BMI) [Ratio] 48.8 kg/m2 48.8 k g/m2 WALDO ([facility]) Systolic blood pressure 120 mm[Hg] 120 mm[Hg] A THENA ([facility]) Body weight 4658 [oz_av] 4658 [oz_av] WALDO ([facility]) Diastolic blood pressure 76 mm[Hg] 76 mm[Hg] WALDO ([facility]) Body height 64.75 [in_i] 64.75 [in_i] WALDO ([facility]) Body mass index (BMI) [Ratio] 48.8 kg/m2 48.8 k g/m2 WALDO ([facility]) Systolic blood pressure 120 mm[Hg] 120 mm[Hg] A THENA ([facility]) Body weight 4658 [oz_av] 4658 [oz_av] WALDO ([facility]) Body height 64.75 [in_i] 64.75 [in_i] WALDO ([facility]) Body height 64.75 [in_i] 64.75 [in_i] WALDO ([facility]) Body height 64.75 [in_i] 64.75 [in_i] WALDO ([facility]) Body height 64.75 [in_i] 64.75 [in_i] WALDO ([facility]) Body height 64.75 [in_i] 64.75 [in_i] WALDO ([facility]) Body height 64.75 [in_i] 64.75 [in_i] WALDO ([facility]) Body height 64.75 [in_i] 64.75 [in_i] WALDO ([facility]) Body height 64.75 [in_i] 64.75 [in_i] WALDO ([facility]) Body height 64.75 [in_i] 64.75 [in_i] WALDO ([facility]) Body height 64.75 [in_i] 64.75 [in_i] WALDO ([facility]) Body height 64.75 [in_i] 64.75 [in_i] WALDO ([facility]) Body height 64.75 [in_i] 64.75 [in_i] WALDO ([facility]) Body height 64.75 [in_i] 64.75 [in_i] WALDO ([facility]) Body height 64.75 [in_i] 64.75 [in_i] WALDO ([facility]) Body height 64.75 [in_i] 64.75 [in_i] WALDO ([facility]) Diastolic blood pressure 79 mm[Hg] 79 mm[Hg] WALDO ([facility]) Body height 64.75 [in_i] 64.75 [in_i] WALDO ([facility]) Body mass index (BMI) [Ratio] 48.07 kg/m2 48.07 kg/m2 WALDO ([facility]) Systolic blood pressure 127 mm[Hg] 127 mm[Hg] [facility] Body weight 4569.6 [oz_av] 4569.6 [oz_av] ATHEN A ([facility]) Diastolic blood pressure 79 mm[Hg] 79 mm[Hg] WALDO ([facility]) Body height 64.75 [in_i] 64.75 [in_i] WALDO ([facility]) Systolic blood pressure 127 mm[Hg] 127 mm[Hg] [facility] Body weight 4569.6 [oz_av] 4569.6 [oz_av] ATHEN A ([facility]) Body mass index (BMI) [Ratio] 48.07 kg/m2 48.07 kg/m2 WALDO ([facility]) Diastolic blood pressure 79 mm[Hg] 79 mm[Hg] WALDO ([facility]) Body height 64.75 [in_i] 64.75 [in_i] WALDO ([facility]) Body mass index (BMI) [Ratio] 48.07 kg/m2 48.07 kg/m2 WALDO ([facility]) Systolic blood pressure 127 mm[Hg] 127 mm[Hg] A THENA ([facility]) Body weight 4569.6 [oz_av] 4569.6 [oz_av] ATHEN A ([facility]) Diastolic blood pressure 79 mm[Hg] 79 mm[Hg] WALDO ([facility]) Body height 64.75 [in_i] 64.75 [in_i] WALDO ([facility]) Body mass index (BMI) [Ratio] 48.07 kg/m2 48.07 kg/m2 WALDO ([facility]) Systolic blood pressure 127 mm[Hg] 127 mm[Hg] [facility] Body weight 4569.6 [oz_av] 4569.6 [oz_av] ATHEN A ([facility]) Diastolic blood pressure 79 mm[Hg] 79 mm[Hg] WALDO ([facility]) Body height 64.75 [in_i] 64.75 [in_i] WALDO ([facility]) Body mass index (BMI) [Ratio] 48.07 kg/m2 48.07 kg/m2 WALDO ([facility]) Systolic blood pressure 127 mm[Hg] 127 mm[Hg] [facility] Body weight 4569.6 [oz_av] 4569.6 [oz_av] ATHEN A ([facility]) Diastolic blood pressure 79 mm[Hg] 79 mm[Hg] WALDO ([facility]) Diastolic blood pressure 79 mm[Hg] 79 mm[Hg] WALDO ([facility]) Body height 64.75 [in_i] 64.75 [in_i] WALDO ([facility]) Body mass index (BMI) [Ratio] 48.07 kg/m2 48.07 kg/m2 WALDO ([facility]) Systolic blood pressure 127 mm[Hg] 127 mm[Hg] A THENA ([facility]) Body weight 4569.6 [oz_av] 4569.6 [oz_av] ATHEN A ([facility]) Body height 64.75 [in_i] 64.75 [in_i] WALDO ([facility]) Body mass index (BMI) [Ratio] 48.07 kg/m2 48.07 kg/m2 WALDO ([facility]) Systolic blood pressure 127 mm[Hg] 127 mm[Hg] A THENA ([facility]) Body weight 4569.6 [oz_av] 4569.6 [oz_av] ATHEN A ([facility]) Patient Treatment Plan of Care Planned Activity Planned Date Details Description Data Source (s) Prednisone 20 MG Oral Tablet WALDO ([facility]) Escitalopram 10 MG Oral Tablet WALDO ([facility]) Cyclobenzaprine hydrochloride 10 MG Oral Tablet WALDO ([facility]) Ciprofloxacin 3 MG/ML / Dexamethasone 1 MG/ML Otic Suspension [Cipr odex] WALDO ([facility]) varenicline 1 MG Oral Tablet WALDO ([facility]) Azithromycin 250 MG Oral Tablet WALDO ([facility]) Prednisone 20 MG Oral Tablet WALDO ([facility]) Hydrocortisone 10 MG/ML / Neomycin 3.5 M G/ML / Polymyxin B [id number] UNT/ML Otic Solution WALDO ([facility]) Escitalopram 10 MG Oral Tablet WALDO ([facility]) Cyclobenzaprine hydrochloride 10 MG Oral Tablet WALDO ([facility]) Ciprofloxacin 3 MG/ML / Dexamethasone 1 MG/ML Otic Suspension [Cipr odex] WALDO ([facility]) varenicline 1 MG Oral Tablet WALDO ([facility]) Azithromycin 250 MG Oral Tablet WALDO ([facility]) Prednisone 20 MG Oral Tablet WALDO ([facility]) Hydrocortisone 10 MG/ML / Neomycin 3.5 M G/ML / Polymyxin B [id number] UNT/ML Otic Solution WALDO ([facility]) Escitalopram 10 MG Oral Tablet WALDO ([facility]) Cyclobenzaprine hydrochloride 10 MG Oral Tablet WALDO ([facility]) Ciprofloxacin 3 MG/ML / Dexamethasone 1 MG/ML Otic Suspension [Cipr odex] WALDO ([facility]) varenicline 1 MG Oral Tablet WALDO ([facility]) Azithromycin 250 MG Oral Tablet WALDO ([facility]) Prednisone 20 MG Oral Tablet WALDO ([facility]) Hydrocortisone 10 MG/ML / Neomycin 3.5 M G/ML / Polymyxin B [id number] UNT/ML Otic Solution WALDO ([facility]) Escitalopram 10 MG Oral Tablet WALDO ([facility]) Cyclobenzaprine hydrochloride 10 MG Oral Tablet WALDO ([facility]) Ciprofloxacin 3 MG/ML / Dexamethasone 1 MG/ML Otic Suspension [Cipr odex] WALDO ([facility]) varenicline 1 MG Oral Tablet WALDO ([facility]) Azithromycin 250 MG Oral Tablet WALDO ([facility]) Prednisone 20 MG Oral Tablet WALDO ([facility]) Hydrocortisone 10 MG/ML / Neomycin 3.5 M G/ML / Polymyxin B 85253 UNT/ML Otic Solution WALDO ([facility]) Escitalopram 10 MG Oral Tablet WALDO ([facility]) Cyclobenzaprine hydrochloride 10 MG Oral Tablet WALDO ([facility]) Ciprofloxacin 3 MG/ML / Dexamethasone 1 MG/ML Otic Suspension [Cipr odex] WALDO ([facility]) varenicline 1 MG Oral Tablet WALDO ([facility]) Azithromycin 250 MG Oral Tablet WALDO ([facility]) Prednisone 20 MG Oral Tablet WALDO ([facility]) Hydrocortisone 10 MG/ML / Neomycin 3.5 M G/ML / Polymyxin B [id number] UNT/ML Otic Solution WALDO ([facility]) Escitalopram 10 MG Oral Tablet WALDO ([facility]) Cyclobenzaprine hydrochloride 10 MG Oral Tablet WALDO ([facility]) Ciprofloxacin 3 MG/ML / Dexamethasone 1 MG/ML Otic Suspension [Cipr odex] WALDO ([facility]) varenicline 1 MG Oral Tablet WALDO ([facility]) Azithromycin 250 MG Oral Tablet WALDO ([facility])
[2021-02-22] MEDS ORDERED: TRIA37.53 (21:03)
[2021-02-22] MEDS ORDERED: HYDR-4571 (21:03)
[2021-02-22] MEDS ORDERED: BUPR150T12 (21:03)
[2021-02-22] MEDS ORDERED: DULO1CAP5 (21:03)
--- OUTSIDE RECORDS SUMMARY | 2021-02-22 22:29 | CCD ---
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 12:00:00 AM EDT [facility] ([facility]) [id number] Contraception care management Contraception Care Manag ement Problem 08/08/2020 12:00:00 AM EDT [facility] ([facility]) [id number] Contraception care management Contraception Care Manag ement Problem 08/08/2020 12:00:00 AM EDT [facility] ([facility]) [id number] Easy bruising Easy Bruising Problem 06/30/2020 12:00:00 AM EDT [facility] ([facility]) [id number] Easy bruising Easy Bruising Problem 06/30/2020 12:00:00 AM EDT [facility] ([facility]) [id number] Easy bruising Easy Bruising Problem 06/30/2020 12:00:00 AM EDT [facility] ([facility]) [id number] Easy bruising Easy Bruising Problem 06/30/2020 12:00:00 AM EDT [facility] ([facility]) [id number] Easy bruising Easy Bruising Problem 06/30/2020 12:00:00 AM EDT [facility] ([facility]) [id number] Easy bruising Easy Bruising Problem 06/30/2020 12:00:00 AM EDT [facility] ([facility]) [id number] Contraception Contraception Problem 05/09/2020 12:00:00 AM EST [facility] ([facility]) [id number] Contraception Contraception Problem 05/09/2020 12:00:00 AM EST [facility] ([facility]) [id number] Contraception Contraception Problem 05/09/2020 12:00:00 AM EST [facility] ([facility]) [id number] Contraception Contraception Problem 05/09/2020 12:00:00 AM EST [facility] ([facility]) [id number] Contraception Contraception Problem 05/09/2020 12:00:00 AM EST [facility] ([facility]) [id number] Contraception Contraception Problem 05/09/2020 12:00:00 AM EST [facility] ([facility]) [id number] Contraception Contraception Problem 05/09/2020 12:00:00 AM EST [facility] ([facility]) [id number] History of malignant neoplasm of cervix History of Malignant Neoplasm of Cervix Problem 01/14/2020 06:30:52 PM EDT [facility] ([facility]) [id number] Asthma Asthma Problem 01/14/2020 06:30:52 PM ED T [facility] ([facility]) [id number] History of malignant neoplasm of cervix History of Malignant Neoplasm of Cervix Problem 01/14/2020 06:30:52 PM EDT [facility] ([facility]) [id number] Asthma Asthma Problem 01/14/2020 06:30:52 PM ED T [facility] ([facility]) [id number] History of malignant neoplasm of cervix History of Malignant Neoplasm of Cervix Problem 01/14/2020 06:30:52 PM EDT [facility] ([facility]) [id number] Asthma Asthma Problem 01/14/2020 06:30:52 PM ED T [facility] ([facility]) [id number] History of malignant neoplasm of cervix History of Malignant Neoplasm of Cervix Problem 01/14/2020 06:30:52 PM EDT [facility] ([facility]) [id number] Asthma Asthma Problem 01/14/2020 06:30:52 PM ED T [facility] ([facility]) [id number] History of malignant neoplasm of cervix History of Malignant Neoplasm of Cervix Problem 01/14/2020 06:30:52 PM EDT [facility] ([facility]) [id number] Asthma Asthma Problem 01/14/2020 06:30:52 PM ED T [facility] ([facility]) [id number] History of malignant neoplasm of cervix History of Malignant Neoplasm of Cervix Problem 01/14/2020 06:30:52 PM EDT [facility] ([facility]) [id number] Asthma Asthma Problem 01/14/2020 06:30:52 PM ED T [facility] ([facility]) [id number] History of malignant neoplasm of cervix History of Malignant Neoplasm of Cervix Problem 01/14/2020 06:30:52 PM EDT [facility] ([facility]) [id number] Asthma Asthma Problem 01/14/2020 06:30:52 PM ED T [facility]) [id number] History of malignant neoplasm of cervix History of Malignant Neoplasm of Cervix Problem 01/14/2020 06:30:52 PM EDT [facility] ([facility]) [id number] Asthma Asthma Problem 01/14/2020 06:30:52 PM ED T [facility] ([facility]) Surgeries/Procedures Procedure Description Date Indications Data Source(s) EXCISION NAIL MATRIX PERMANENT REMOVAL 11/29/2020 12:0 0:00 AM EDT [facility] ([facility] EXCISION NAIL MATRIX PERMANENT REMOVAL 11/29/2020 12:0 0:00 AM EDT [facility] ([facility] OFFICE OUTPATIENT NEW 30 MINUTES 11/29/2020 12:00:00 A M EDT [facility] ([facility] Results ID Date Data Source [id number] 11/09/2020 01:07:00 PM EDT [facility]) Name Value Range Interpretation Code Description Data Marina rce(s) Supporting Document(s) HCG negative Hcg [facility]) ID Date Data Source [id number] 10/07/2020 11:15:00 AM EDT [facility]) Name Value Range Interpretation Code Description Data Marina rce(s) Supporting Document(s) Hepatitis C virus Ab [Presence] in Serum or Plasma by Immuno assay non-reactive non-reactive Hepatitis C Antibody [facility] ([facility]) Hepatitis C virus Ab Signal/Cutoff in Serum or Plasma by Immunoassa y <1.00 Index [facility]) ID Date Data Source [id number] 10/07/2020 11:15:00 AM EDT [facility]) Name Value Range Interpretation Code Description Data Marina rce(s) Supporting Document(s) Leukocytes [#/volume] in Blood by Automated count 10.1 thousand/uL 3.8-10.8 White Blood Cell Count [facility] ([facility]) Erythrocytes [#/volume] in Blood by Automated count 4.92 million/uL 3.80-5.10 Red Blood Cell Count [facility] ([facility]) Hemoglobin [Mass/volume] in Blood 14.9 g/dL 11.7-15.5 He moglobin [facility] ([facility]) Hematocrit [Volume Fraction] of Blood by Automated count 43.6 % 35.0-45.0 Hematocrit [facility] ([facility]) Erythrocyte mean corpuscular volume [Entitic volume] by Auto mated count 88.6 fL 80.0-100.0 Mcv [facility] ([facility]) Erythrocyte mean corpuscular hemoglobin [Entitic mass] by Automated count 30.3 pg 27.0-33.0 Mch [facility] ([facility]) Erythrocyte distribution width [Ratio] by Automated count 12.4 % 11.0-15.0 Rdw [facility] ([facility]) Erythrocyte mean corpuscular hemoglobin concentration [Mass/volume] by Automated count 34.2 g/dL 32.0-36.0 Mchc [facility] ([facility]) Neutrophils [#/volume] in Blood by Automated count 5646 cells/uL 15 00-7800 Absolute Neutrophils [facility] ([facility]) Platelets [#/volume] in Blood by Automated count 271 thousand/uL 14 0-400 Platelet Count [facility] ([facility]) Platelet mean volume [Entitic volume] in Blood by Dom 12. 7 fL 7.5-12.5 Above high normal Mpv [facility] ([facility]) Lymphocytes [#/volume] in Blood by Automated count 3414 cells/uL 85 0-3900 Absolute Lymphocytes [facility] ([facility]) Eosinophils [#/volume] in Blood by Automated count 242 cells/uL 15- 500 Absolute Eosinophils [facility] ([facility]) Lymphocytes/100 leukocytes in Blood by Automated count 33.8 % 15-49 Lymphocytes [facility] ([facility]) Neutrophils/100 leukocytes in Blood by Automated count 55.9 % 38-80 Neutrophils [facility] ([facility]) Basophils [#/volume] in Blood by Automated count 81 cells/uL 0-200 Absolute Basophils [facility] ([facility]) Monocytes [#/volume] in Blood by Automated count 717 cells/uL 200-9 50 Absolute Monocytes [facility] ([facility]) Basophils/100 leukocytes in Blood by Automated count 0.8 % 0-2 Basophils [facility] ([facility]) Monocytes/100 leukocytes in Blood by Automated count 7.1 % 0-13 Monocytes [facility] ([facility]) Eosinophils/100 leukocytes in Blood by Automated count 2.4 % 0-8 Eosinophils [facility] ([facility]) ID Date Data Source [id number] 10/07/2020 11:15:00 AM EDT [facility]) Name Value Range Interpretation Code Description Data Marina rce(s) Supporting Document(s) Urea nitrogen [Mass/volume] in Serum or Plasma 14 mg/dL 7-25 Urea Nitrogen (BUN) [facility] ([facility]) Glucose [Mass/volume] in Serum or Plasma 107 mg/dL 65-99 Above high normal Glucose [facility] ([facility]) Glomerular filtration rate/1.73 sq M.pre dicted among blacks [Volume Rate/Area] in Serum, Plasma or Blood by Creatinine-based formula (CKD-EPI) 115 mL/min/1.73m2 > or = 60 eGFR [facility] ([facility]) Glomerular filtration rate/1.73 sq M.pre dicted among non-blacks [Volume Rate/Area] in Serum, Plasma or Blood by Creatinine-based formula (CKD-EPI) 99 mL/min/1.73m2 > or = 60 eGFR Non-afr. Moroccan [facility] ([facility]) Creatinine [Mass/volume] in Serum or Plasma 0.74 mg/dL 0.50-1.10 Creatinine [facility] Sodium [Moles/volume] in Serum or Plasma 138 mmol/L 135-146 Sodium [facility] Urea nitrogen/Creatinine [Mass Ratio] in Serum or Plasma not applic able 6-22 BUN/creatinine Ratio [facility] ([facility]) Potassium [Moles/volume] in Serum or Plasma 4.3 mmol/L 3.5-5.3 Potassium [facility] ([facility]) Chloride [Moles/volume] in Serum or Plasma 105 mmol/L 98-110 Chloride [facility] ([facility]) Carbon dioxide, total [Moles/volume] in Serum or Plasma 24 mmol/L 20-32 Carbon Dioxide [facility] ([facility]) Calcium [Mass/volume] in Serum or Plasma 9.5 mg/dL 8.6-10.2 Calcium [facility] ([facility]) Protein [Mass/volume] in Serum or Plasma 6.8 g/dL 6.1-8.1 Protein, Total [place] ([facility]) Albumin [Mass/volume] in Serum or Plasma 4.0 g/dL 3.6-5.1 Albumin [facility] ([facility]) Albumin/Globulin [Mass Ratio] in Serum or Plasma 1.4 (calc) 1.0-2 .5 Albumin/globulin Ratio [facility] ([facility]) Globulin [Mass/volume] in Serum by calculation 2.8 g/dL_(calc) 1.9- 3.7 Globulin [facility] ([facility]) Aspartate aminotransferase [Enzymatic activity/volume] in Serum or Plasma 14 U/L 10-30 Ast [facility] ([facility]) Bilirubin.total [Mass/volume] in Serum or Plasma 0.3 mg/dL 0.2-1 .2 Bilirubin, Total [facility] ([facility]) Alkaline phosphatase [Enzymatic activity/volume] in Serum or Plasma 71 U/L 31-125 Alkaline Phosphatase [facility] ([facility]) Alanine aminotransferase [Enzymatic activity/volume] in Seru m or Plasma 16 U/L 6-29 Alt [facility] ([facility]) ID Date Data Source [id number] 10/07/2020 11:15:00 AM EDT [place] ([facility]) Name Value Range Interpretation Code Description Data Marina rce(s) Supporting Document(s) Cholesterol [Mass/volume] in Serum or Plasma 124 mg/dL <200 Cholesterol, Total [facility] ([facility]) Cholesterol in HDL [Mass/volume] in Serum or Plasma 34 mg/dL > or = 50 Below low normal HDL Cholesterol [facility] ([facility]) Triglyceride [Mass/volume] in Serum or Plasma 154 mg/dL <150 Above high normal Triglycerides [facility] ([facility]) Cholesterol.total/Cholesterol in HDL [Mass Ratio] in Serum o r Plasma 3.6 calc <5.0 Chol/hdlc Ratio [facility] ([facility]) Cholesterol non HDL [Mass/volume] in Serum or Plasma 90 mg/dL_(calc ) <130 Non HDL Cholesterol [facility] ([facility]) Cholesterol in LDL [Mass/volume] in Serum or Plasma by calculation 66 mg/dL_(calc) <100 LDL-cholesterol [facility] ([facility]) Lipoprotein.beta.subparticle [Moles/volume] in Serum or Plas ma 1101 nmol/L <1138 LDL Particle Number [facility] ([facility]) Lipoprotein.alpha 3 [Moles/volume] in Serum 186 nmol/L <215 LDL Medium [facility] Lipoprotein.beta.subparticle.small [Moles/volume] in Serum o r Plasma 245 nmol/L <142 Above high normal LDL Small [facility] ([facility]) Lipoprotein.alpha.subparticle.large [Moles/volume] in Serum or Plasma 5614 nmol/L >6729 Below low normal HDL Large [facility] ([facility]) Apolipoprotein B [Mass/volume] in Serum or Plasma 68 mg/dL Apolipoprotein B [facility] Lipoprotein.beta.subparticle [Entitic length] in Serum or Pl asma 212.7 angstrom >222.9 Below low normal LDL Peak Size [facility] ([facility]) Cholesterol in LDL real size pattern [Identifier] in Serum or Pl asma B A Abnormal (applies to non-numeric results) LDL Pattern [facility] ([facility]) Lipoprotein a [Moles/volume] in Serum or Plasma 30 nmol/L <75 Lipoprotein (a) [facility] ID Date Data Source [id number] 10/07/2020 11:15:00 AM EDT [facility]) Name Value Range Interpretation Code Description Data Marina rce(s) Supporting Document(s) HIV 1+2 Ab+HIV1 p24 Ag [Presence] in Serum or Plasma b y Immunoassay non-reactive non-reactive HIV Ag/Ab, 4TH Gen [facility]) ID Date Data Source [id number] 10/07/2020 11:15:00 AM EDT [facility]) Name Value Range Interpretation Code Description Data Marina rce(s) Supporting Document(s) Triiodothyronine resin uptake (T3RU) in Serum or Plasma 30 % 22 -35 T3 Uptake [place] ([facility]) Thyroxine (T4) [Mass/volume] in Serum or Plasma 7.4 mcg/dL 5.1-11 .9 T4 (Thyroxine), Total [facility] ([facility]) Thyroxine (T4) free index in Serum or Plasma by calculation 1.4-3.8 Free T4 Index (T7) [facility] ([facility]) Thyrotropin [Units/volume] in Serum or Plasma 1.40 mIU/L Tsh [facility]) ID Date Data Source [id number] 10/07/2020 11:15:00 AM EDT [facility]) Name Value Range Interpretation Code Description Data Marina rce(s) Supporting Document(s) Hepatitis C virus Ab Signal/Cutoff in Serum or Plasma by Immunoassa y <1.00 Index [facility] ([facility]) Hepatitis C virus Ab [Presence] in Serum or Plasma by Immuno assay non-reactive non-reactive Hepatitis C Antibody [facility]) ID Date Data Source [id number] 10/07/2020 11:15:00 AM EDT [facility]) Name Value Range Interpretation Code Description Data Marina rce(s) Supporting Document(s) Leukocytes [#/volume] in Blood by Automated count 10.1 thousand/uL 3.8-10.8 White Blood Cell Count [facility] ([facility]) Hematocrit [Volume Fraction] of Blood by Automated count 43.6 % 35.0-45.0 Hematocrit [facility] ([facility]) Hemoglobin [Mass/volume] in Blood 14.9 g/dL 11.7-15.5 He moglobin [facility] ([facility]) Erythrocytes [#/volume] in Blood by Automated count 4.92 million/uL 3.80-5.10 Red Blood Cell Count [facility] ([facility]) Erythrocyte mean corpuscular hemoglobin [Entitic mass] by Automated count 30.3 pg 27.0-33.0 Mch [facility] ([facility]) Erythrocyte mean corpuscular volume [Entitic volume] by Auto mated count 88.6 fL 80.0-100.0 Mcv [facility] ([facility]) Erythrocyte distribution width [Ratio] by Automated count 12.4 % 11.0-15.0 Rdw [facility] ([facility]) Erythrocyte mean corpuscular hemoglobin concentration [Mass/volume] by Automated count 34.2 g/dL 32.0-36.0 Mchc [facility] ([facility]) Platelets [#/volume] in Blood by Automated count 271 thousand/uL 14 0-400 Platelet Count [facility] ([facility]) Platelet mean volume [Entitic volume] in Blood by Pradeep-Donaldo 12. 7 fL 7.5-12.5 Above high normal Mpv [facility] ([facility]) Neutrophils [#/volume] in Blood by Automated count 5646 cells/uL 15 00-7800 Absolute Neutrophils [facility] ([facility]) Lymphocytes [#/volume] in Blood by Automated count 3414 cells/uL 85 0-3900 Absolute Lymphocytes [facility] ([facility]) Eosinophils [#/volume] in Blood by Automated count 242 cells/uL 15- 500 Absolute Eosinophils [facility] ([facility]) Basophils [#/volume] in Blood by Automated count 81 cells/uL 0-200 Absolute Basophils [facility] ([facility]) Monocytes [#/volume] in Blood by Automated count 717 cells/uL 200-9 50 Absolute Monocytes [facility] ([facility]) Neutrophils/100 leukocytes in Blood by Automated count 55.9 % 38-80 Neutrophils [facility] ([facility]) Basophils/100 leukocytes in Blood by Automated count 0.8 % 0-2 Basophils [facility] ([facility]) Lymphocytes/100 leukocytes in Blood by Automated count 33.8 % 15-49 Lymphocytes [facility] ([facility]) Eosinophils/100 leukocytes in Blood by Automated count 2.4 % 0-8 Eosinophils [facility] ([facility]) Monocytes/100 leukocytes in Blood by Automated count 7.1 % 0-13 Monocytes [facility] ([facility]) ID Date Data Source [id number] 10/07/2020 11:15:00 AM EDT [facility]) Name Value Range Interpretation Code Description Data Marina rce(s) Supporting Document(s) Glucose [Mass/volume] in Serum or Plasma 107 mg/dL 65-99 Above high normal Glucose [facility] ([facility]) Urea nitrogen [Mass/volume] in Serum or Plasma 14 mg/dL 7-25 Urea Nitrogen (BUN) [facility] ([facility]) Glomerular filtration rate/1.73 sq M.pre dicted among non-blacks [Volume Rate/Area] in Serum, Plasma or Blood by Creatinine-based formula (CKD-EPI) 99 mL/min/1.73m2 > or = 60 eGFR Non-afr. Moroccan [facility] ([facility]) Glomerular filtration rate/1.73 sq M.pre dicted among blacks [Volume Rate/Area] in Serum, Plasma or Blood by Creatinine-based formula (CKD-EPI) 115 mL/min/1.73m2 > or = 60 eGFR [facility] ([facility]) Creatinine [Mass/volume] in Serum or Plasma 0.74 mg/dL 0.50-1.10 Creatinine [facility] ([facility]) Urea nitrogen/Creatinine [Mass Ratio] in Serum or Plasma not applic able 6-22 BUN/creatinine Ratio [facility] ([facility]) Potassium [Moles/volume] in Serum or Plasma 4.3 mmol/L 3.5-5.3 Potassium [facility] ([facility]) Sodium [Moles/volume] in Serum or Plasma 138 mmol/L 135-146 Sodium [facility] ([facility]) Chloride [Moles/volume] in Serum or Plasma 105 mmol/L 98-110 Chloride [facility] ([facility]) Carbon dioxide, total [Moles/volume] in Serum or Plasma 24 mmol/L 20-32 Carbon Dioxide [facility] ([facility]) Calcium [Mass/volume] in Serum or Plasma 9.5 mg/dL 8.6-10.2 Calcium [facility] ([facility]) Protein [Mass/volume] in Serum or Plasma 6.8 g/dL 6.1-8.1 Protein, Total [facility] ([facility]) Albumin/Globulin [Mass Ratio] in Serum or Plasma 1.4 (calc) 1.0-2 .5 Albumin/globulin Ratio [facility] ([facility]) Globulin [Mass/volume] in Serum by calculation 2.8 g/dL_(calc) 1.9- 3.7 Globulin [facility] ([facility]) Albumin [Mass/volume] in Serum or Plasma 4.0 g/dL 3.6-5.1 Albumin [facility] ([facility]) Aspartate aminotransferase [Enzymatic activity/volume] in Serum or Plasma 14 U/L 10-30 Ast [facility] ([facility]) Alkaline phosphatase [Enzymatic activity/volume] in Serum or Plasma 71 U/L 31-125 Alkaline Phosphatase [facility] ([facility]) Alanine aminotransferase [Enzymatic activity/volume] in Seru m or Plasma 16 U/L 6-29 Alt [facility] ([facility]) Bilirubin.total [Mass/volume] in Serum or Plasma 0.3 mg/dL 0.2-1 .2 Bilirubin, Total [facility] ([facility]) ID Date Data Source [id number] 10/07/2020 11:15:00 AM EDT [place] ([facility]) Name Value Range Interpretation Code Description Data Marina rce(s) Supporting Document(s) Cholesterol [Mass/volume] in Serum or Plasma 124 mg/dL <200 Cholesterol, Total [place] ([facility]) Cholesterol in LDL [Mass/volume] in Serum or Plasma by calculation 66 mg/dL_(calc) <100 LDL-cholesterol [facility] ([facility]) Cholesterol in HDL [Mass/volume] in Serum or Plasma 34 mg/dL > or = 50 Below low normal HDL Cholesterol WALDO ([facility]) Triglyceride [Mass/volume] in Serum or Plasma 154 mg/dL <150 Above high normal Triglycerides WALDO ([facility]) Lipoprotein.beta.subparticle [Moles/volume] in Serum or Plas ma 1101 nmol/L <1138 LDL Particle Number WALDO ([facility]) Cholesterol.total/Cholesterol in HDL [Mass Ratio] in Serum o r Plasma 3.6 calc <5.0 Chol/hdlc Ratio WALDO ([facility]) Cholesterol non HDL [Mass/volume] in Serum or Plasma 90 mg/dL_(calc ) <130 Non HDL Cholesterol WALDO ([facility]) Lipoprotein.alpha.subparticle.large [Moles/volume] in Serum or Plasma 5614 nmol/L >6729 Below low normal HDL Large WALDO ([facility]) Lipoprotein.alpha 3 [Moles/volume] in Serum 186 nmol/L <215 LDL Medium [facility] Lipoprotein.beta.subparticle.small [Moles/volume] in Serum o r Plasma 245 nmol/L <142 Above high normal LDL Small WALDO ([facility]) Cholesterol in LDL real size pattern [Identifier] in Serum or Pl asma B A Abnormal (applies to non-numeric results) LDL Pattern WALDO ([facility]) Lipoprotein a [Moles/volume] in Serum or Plasma 30 nmol/L <75 Lipoprotein (a) WALDO ([facility]) Lipoprotein.beta.subparticle [Entitic length] in Serum or Pl asma 212.7 angstrom >222.9 Below low normal LDL Peak Size WALDO ([facility]) Apolipoprotein B [Mass/volume] in Serum or Plasma 68 mg/dL Apolipoprotein B WALDO ([facility]) ID Date Data Source [id number] 10/07/2020 11:15:00 AM EDT [facility] Name Value Range Interpretation Code Description Data Marina rce(s) Supporting Document(s) HIV 1+2 Ab+HIV1 p24 Ag [Presence] in Serum or Plasma b y Immunoassay non-reactive non-reactive HIV Ag/Ab, 4TH Gen [facility]) ID Date Data Source [id number] 10/07/2020 11:15:00 AM EDT [facility]) Name Value Range Interpretation Code Description Data Marina rce(s) Supporting Document(s) Triiodothyronine resin uptake (T3RU) in Serum or Plasma 30 % 22 -35 T3 Uptake RENO ([facility]) Thyroxine (T4) [Mass/volume] in Serum or Plasma 7.4 mcg/dL 5.1-11 .9 T4 (Thyroxine), Total [facility]) Thyroxine (T4) free index in Serum or Plasma by calculation 1.4-3.8 Free T4 Index (T7) [facility]) Thyrotropin [Units/volume] in Serum or Plasma 1.40 mIU/L Tsh [facility]) ID Date Data Source [id number] 10/07/2020 11:15:00 AM EDT [facility]) Name Value Range Interpretation Code Description Data Marina rce(s) Supporting Document(s) Hepatitis C virus Ab [Presence] in Serum or Plasma by Immuno assay non-reactive non-reactive [facility] Hepatitis C virus Ab Signal/Cutoff in Serum or Plasma by Immunoassa y <1.00 Index [facility]) ID Date Data Source [id number] 10/07/2020 11:15:00 AM EDT [facility]) Name Value Range Interpretation Code Description Data Marina rce(s) Supporting Document(s) Erythrocytes [#/volume] in Blood by Automated count 4.92 million/uL 3.80-5.10 Red Blood Cell Count [facility]) Leukocytes [#/volume] in Blood by Automated count 10.1 thousand/uL 3.8-10.8 White Blood Cell Count WALDO ([facility]) Hemoglobin [Mass/volume] in Blood 14.9 g/dL 11.7-15.5 He moglobin WALDO ([facility]) Erythrocyte mean corpuscular hemoglobin [Entitic mass] by Automated count 30.3 pg 27.0-33.0 Mch WALDO ([facility]) Hematocrit [Volume Fraction] of Blood by Automated count 43.6 % 35.0-45.0 Hematocrit WALDO ([facility]) Erythrocyte mean corpuscular hemoglobin concentration [Mass/volume] by Automated count 34.2 g/dL 32.0-36.0 Mchc WALDO ([facility]) Erythrocyte mean corpuscular volume [Entitic volume] by Auto mated count 88.6 fL 80.0-100.0 Mcv WALDO ([facility]) Platelet mean volume [Entitic volume] in Blood by Dom 12. 7 fL 7.5-12.5 Above high normal Mpv WALDO ([facility]) Erythrocyte distribution width [Ratio] by Automated count 12.4 % 11.0-15.0 Rdw WALDO ([facility]) Platelets [#/volume] in Blood by Automated count 271 thousand/uL 14 0-400 Platelet Count WALDO ([facility]) Eosinophils [#/volume] in Blood by Automated count 242 cells/uL 15- 500 Absolute Eosinophils WALDO ([facility]) Neutrophils [#/volume] in Blood by Automated count 5646 cells/uL 15 00-7800 Absolute Neutrophils WALDO ([facility]) Lymphocytes [#/volume] in Blood by Automated count 3414 cells/uL 85 0-3900 Absolute Lymphocytes WALDO ([facility]) Monocytes [#/volume] in Blood by Automated count 717 cells/uL 200-9 50 Absolute Monocytes WALDO ([facility]) Basophils [#/volume] in Blood by Automated count 81 cells/uL 0-200 Absolute Basophils WALDO ([facility]) Lymphocytes/100 leukocytes in Blood by Automated count 33.8 % 15-49 Lymphocytes WALDO ([facility]) Neutrophils/100 leukocytes in Blood by Automated count 55.9 % 38-80 Neutrophils WALDO ([facility]) Monocytes/100 leukocytes in Blood by Automated count 7.1 % 0-13 Monocytes WALDO ([facility]) Eosinophils/100 leukocytes in Blood by Automated count 2.4 % 0-8 Eosinophils WALDO ([facility]) Basophils/100 leukocytes in Blood by Automated count 0.8 % 0-2 Basophils R[place] ([facility]) ID Date Data Source [id number] 10/07/2020 11:15:00 AM EDT R[place] ([facility]) Name Value Range Interpretation Code Description Data Marina rce(s) Supporting Document(s) Urea nitrogen [Mass/volume] in Serum or Plasma 14 mg/dL 7-25 Urea Nitrogen (BUN) WALDO ([facility]) Glucose [Mass/volume] in Serum or Plasma 107 mg/dL 65-99 Above high normal Glucose RENO ([facility]) Glomerular filtration rate/1.73 sq M.pre dicted among non-blacks [Volume Rate/Area] in Serum, Plasma or Blood by Creatinine-based formula (CKD-EPI) 99 mL/min/1.73m2 > or = 60 eGFR Non-afr. Moroccan WALDO ([facility]) Creatinine [Mass/volume] in Serum or Plasma 0.74 mg/dL 0.50-1.10 Creatinine R[facility] ([facility]) Glomerular filtration rate/1.73 sq M.pre dicted among blacks [Volume Rate/Area] in Serum, Plasma or Blood by Creatinine-based formula (CKD-EPI) 115 mL/min/1.73m2 > or = 60 eGFR [facility]DO ([facility]) Sodium [Moles/volume] in Serum or Plasma 138 mmol/L 135-146 Sodium WALDO ([facility]) Urea nitrogen/Creatinine [Mass Ratio] in Serum or Plasma not applic able 6-22 BUN/creatinine Ratio WALDO ([facility]) Carbon dioxide, total [Moles/volume] in Serum or Plasma 24 mmol/L 20-32 Carbon Dioxide RENO ([facility]) Potassium [Moles/volume] in Serum or Plasma 4.3 mmol/L 3.5-5.3 Potassium WALDO ([facility]) Chloride [Moles/volume] in Serum or Plasma 105 mmol/L 98-110 Chloride WALDO ([facility]) Calcium [Mass/volume] in Serum or Plasma 9.5 mg/dL 8.6-10.2 Calcium WALDO ([facility]) Protein [Mass/volume] in Serum or Plasma 6.8 g/dL 6.1-8.1 Protein, Total WALDO ([facility]) Albumin/Globulin [Mass Ratio] in Serum or Plasma 1.4 (calc) 1.0-2 .5 Albumin/globulin Ratio WALDO ([facility]) Albumin [Mass/volume] in Serum or Plasma 4.0 g/dL 3.6-5.1 Albumin RENO ([facility]) Globulin [Mass/volume] in Serum by calculation 2.8 g/dL_(calc) 1.9- 3.7 Globulin R[facility] ([facility]) Bilirubin.total [Mass/volume] in Serum or Plasma 0.3 mg/dL 0.2-1 .2 Bilirubin, Total WALDO ([facility]) Alkaline phosphatase [Enzymatic activity/volume] in Serum or Plasma 71 U/L 31-125 Alkaline Phosphatase [facility] ([facility]) Aspartate aminotransferase [Enzymatic activity/volume] in Serum or Plasma 14 U/L 10-30 Ast WALDO ([facility]) Alanine aminotransferase [Enzymatic activity/volume] in Seru m or Plasma 16 U/L 6-29 Alt WALDO ([facility]) ID Date Data Source [id number] 10/07/2020 11:15:00 AM EDT WALDO ([facility]) Name Value Range Interpretation Code Description Data Marina rce(s) Supporting Document(s) Triglyceride [Mass/volume] in Serum or Plasma 154 mg/dL <150 Above high normal Triglycerides WALDO ([facility]) Cholesterol in HDL [Mass/volume] in Serum or Plasma 34 mg/dL > or = 50 Below low normal HDL Cholesterol WALDO ([facility]) Cholesterol [Mass/volume] in Serum or Plasma 124 mg/dL <200 Ch[facility], [facility] Cholesterol.total/Cholesterol in HDL [Mass Ratio] in Serum o r Plasma 3.6 calc <5.0 Chol/hdlc Ratio WALDO ([facility]) Cholesterol in LDL [Mass/volume] in Serum or Plasma by calculation 66 mg/dL_(calc) <100 LDL-cholesterol WALDO ([facility]) Cholesterol non HDL [Mass/volume] in Serum or Plasma 90 mg/dL_(calc ) <130 Non HDL Cholesterol RENO ([facility]) Lipoprotein.beta.subparticle [Moles/volume] in Serum or Plas ma 1101 nmol/L <1138 LDL Particle Number RENO ([facility]) Lipoprotein.alpha 3 [Moles/volume] in Serum 186 nmol/L <215 LDL Medium [facility]) Lipoprotein.beta.subparticle.small [Moles/volume] in Serum o r Plasma 245 nmol/L <142 Above high normal LDL Small WALDO ([facility]) Lipoprotein.beta.subparticle [Entitic length] in Serum or Pl asma 212.7 angstrom >222.9 Below low normal LDL Peak Size R[place] ([facility]) Lipoprotein.alpha.subparticle.large [Moles/volume] in Serum or Plasma 5614 nmol/L >6729 Below low normal HDL Large WALDO ([facility]) Cholesterol in LDL real size pattern [Identifier] in Serum or Pl asma B A Abnormal (applies to non-numeric results) LDL Pattern WALDO ([facility]) Apolipoprotein B [Mass/volume] in Serum or Plasma 68 mg/dL Apolipoprotein B RENO ([facility]) Lipoprotein a [Moles/volume] in Serum or Plasma 30 nmol/L <75 Lipoprotein (a) RENO ([facility]) ID Date Data Source [id number] 10/07/2020 11:15:00 AM EDT [facility]) Name Value Range Interpretation Code Description Data Marina rce(s) Supporting Document(s) HIV 1+2 Ab+HIV1 p24 Ag [Presence] in Serum or Plasma b y Immunoassay non-reactive non-reactive HIV Ag/Ab, 4TH Gen WALDO ([facility]) ID Date Data Source [id number] 10/07/2020 11:15:00 AM EDT WALDO ([facility]) Name Value Range Interpretation Code Description Data Marina rce(s) Supporting Document(s) Triiodothyronine resin uptake (T3RU) in Serum or Plasma 30 % 22 -35 T3 Uptake WALDO ([facility]) Thyroxine (T4) [Mass/volume] in Serum or Plasma 7.4 mcg/dL 5.1-11 .9 T4 (Thyroxine), Total WALDO ([facility]) Thyroxine (T4) free index in Serum or Plasma by calculation 1.4-3.8 Free T4 Index (T7) RENO ([facility]) Thyrotropin [Units/volume] in Serum or Plasma 1.40 mIU/L Tsh RENO ([facility]) ID Date Data Source [id number] 05/09/2020 09:52:00 AM EST R[place] ([facility]) Name Value Range Interpretation Code Description Data Marina rce(s) Supporting Document(s) HCG negative Hcg R[facility] ([facility]) ID Date Data Source [id number] 05/09/2020 09:52:00 AM EST [facility]) Name Value Range Interpretation Code Description Data Marina rce(s) Supporting Document(s) HCG negative Hcg R[facility] ([facility]) ID Date Data Source [id number] 05/09/2020 09:52:00 AM EST WALDO ([facility]) Name Value Range Interpretation Code Description Data Marina rce(s) Supporting Document(s) HCG negative Hcg R[place] ([facility]) ID Date Data Source [id number] 05/09/2020 09:52:00 AM EST WALDO ([facility]) Name Value Range Interpretation Code Description Data Marina rce(s) Supporting Document(s) HCG negative Hcg [facility] ([facility]) ID Date Data Source [id number] 05/09/2020 09:52:00 AM EST WALDO ([facility]) Name Value Range Interpretation Code Description Data Marina rce(s) Supporting Document(s) HCG negative Hcg WAL[facility] ([facility]) ID Date Data Source [id number] 05/09/2020 09:52:00 AM EST WALDO ([facility]) Name Value Range Interpretation Code Description Data Marina rce(s) Supporting Document(s) HCG negative Hcg WAL[facility] ([facility]) ID Date Data Source [id number] 12/25/2019 11:28:46 AM EDT [facility] Measurements & CalculationsHeight: 64.75 inches 164.47 cm [...] (ER) or urgent care clinic? No - [facility] fallEmergency room (ER) or urgent [...] during this visit, including review of any gdcj-kre-lunzdtz medications, herbal therapies, and/or supplements.Allergy ReviewAllergy List [...] is? GoodAssessment & Plan Problems:Assessed:Anxiety disorder, unspecified (PWJ40-G45.9) Assessment: Instructions: Partial remission. Increase Lexapro from [...] (Severe)Orders:Adult - Ofc Vst, EST, Level III [CPT-08553] Follow-Up Return to clinic: 1 month for follow upMedications:ESCITALOPRAM OXALATE 20 MG ORAL TABLET (ESCITALOPRAM OXALATE) One tablet by mouth every day #30[Tablet] x 2 Route:ORAL Entered and Authorized by: Bridger Yen MD [facility] [address] [place] [address] Note to Pharmacy: Route: ORAL; RxID: [id number] patient was counseled by the physician on [...] Syringe 0.5 MLMfr / Lot# / Exp.Date: [employer] / [id number] 1Amt. Given / Route / Site: 0.5 mL / IM / Left DeltoidNDC / CVX: [id number] / 150Administered Date: 12/25/2019 12:55VFC Eligibility: Not VFC EligibleFunding Source: [employer] FundsVIS Date: 11/13/2018VIS Given / VIS Given On: Yes 12/25/2019Comments: Administered by: Deni Estrada LPN Name Value Range Interpretation Code Description Data Marina rce(s) Supporting Document(s) Procedure Social History No Information Vital Signs ID Date Data Source [id number] Name Value Range Interpretation Code Description Data Source(s) Systolic blood pressure 115 mm[Hg] 115 mm[Hg] A THENA ([facility]) Diastolic blood pressure 81 mm[Hg] 81 mm[Hg] WALDO ([facility]) Body weight 4840 [oz_av] 4840 [oz_av] WALDO ([facility]) Body height 64.75 [in_i] 64.75 [in_i] WALDO ([facility]) Body mass index (BMI) [Ratio] 50.7 kg/m2 50.7 k g/m2 WALDO ([facility]) Heart rate 77 /min 77 [...] Body height 64.75 [in_i] 64.75 [in_i] WALDO ([facility]) Body height 64.75 [in_i] 64.75 [in_i] WALDO ([facility]) Body height 64.75 [in_i] 64.75 [in_i] W[facility]DO ([facility]) Diastolic blood pressure 76 mm[Hg] 76 mm[Hg] WAL[facility] ([facility]) Body height 64.75 [in_i] 64.75 [in_i] WALDO ([facility]) Body mass index (BMI) [Ratio] 48.8 kg/m2 48.8 k g/m2 W[facility] ([facility]) Systolic blood pressure 120 mm[Hg] 120 mm[Hg] A THENA ([facility]) Body weight 4658 [oz_av] 4658 [oz_av] W[facility] ([facility]) Diastolic blood pressure 76 mm[Hg] 76 mm[Hg] WAL[facility] ([facility]) Diastolic blood pressure 76 mm[Hg] 76 mm[Hg] WAL[facility] ([facility]) Body height 64.75 [in_i] 64.75 [in_i] WALDO ([facility]) Body mass index (BMI) [Ratio] 48.8 kg/m2 48.8 k g/m2 W[facility] ([facility]) Systolic blood pressure 120 mm[Hg] 120 mm[Hg] [facility] Body weight 4658 [oz_av] 4658 [oz_av] WALDO ([facility]) Body height 64.75 [in_i] 64.75 [in_i] WALDO ([facility]) Body mass index (BMI) [Ratio] 48.8 kg/m2 48.8 k g/m2 WALDO ([facility]) Systolic blood pressure 120 mm[Hg] 120 mm[Hg] A THENA ([facility]) Body weight 4658 [oz_av] 4658 [oz_av] WALDO ([facility]) Diastolic blood pressure 76 mm[Hg] 76 mm[Hg] WALDO ([facility]) Body height 64.75 [in_i] 64.75 [in_i] WAL[facility] ([facility]) Body mass index (BMI) [Ratio] 48.8 kg/m2 48.8 k g/m2 WAL[facility] ([facility]) Systolic blood pressure 120 mm[Hg] 120 mm[Hg] A THENA ([facility]) Body weight 4658 [oz_av] 4658 [oz_av] W[facility]DO ([facility]) Diastolic blood pressure 76 mm[Hg] 76 mm[Hg] WAL[facility] ([facility]) Body height 64.75 [in_i] 64.75 [in_i] [facility] ([facility]) Body mass index (BMI) [Ratio] 48.8 kg/m2 48.8 k g/m2 W[facility] ([facility]) Systolic blood pressure 120 mm[Hg] 120 mm[Hg] A THENA ([facility]) Body weight 4658 [oz_av] 4658 [oz_av] W[facility]DO ([facility]) Diastolic blood pressure 76 mm[Hg] 76 mm[Hg] WALDO ([facility]) Body height 64.75 [in_i] 64.75 [in_i] WALDO ([facility]) Body mass index (BMI) [Ratio] 48.8 kg/m2 48.8 k g/m2 W[facility] ([facility]) Systolic blood pressure 120 mm[Hg] 120 mm[Hg] A THENA ([facility]) Body weight 4658 [oz_av] 4658 [oz_av] WAL[facility] ([facility]) Body height 64.75 [in_i] 64.75 [in_i] [facility] ([facility]) Body height 64.75 [in_i] 64.75 [in_i] WALDO ([facility]) Body height 64.75 [in_i] 64.75 [in_i] WALDO ([facility]) Body height 64.75 [in_i] 64.75 [in_i] [facility] ([facility]) Body height 64.75 [in_i] 64.75 [in_i] [facility]ALDO ([facility]) Body height 64.75 [in_i] 64.75 [in_i] [facility] ([facility]) Body height 64.75 [in_i] 64.75 [in_i] [facility] ([facility]) Body height 64.75 [in_i] 64.75 [in_i] [facility] ([facility]) Body height 64.75 [in_i] 64.75 [in_i] [facility] ([facility]) Body height 64.75 [in_i] 64.75 [in_i] [facility] ([facility]) Body height 64.75 [in_i] 64.75 [in_i] [facility] ([facility]) Body height 64.75 [in_i] 64.75 [in_i] [facility] ([facility]) Body height 64.75 [in_i] 64.75 [in_i] [facility] ([facility]) Body height 64.75 [in_i] 64.75 [in_i] [facility] ([facility]) Body height 64.75 [in_i] 64.75 [in_i] WALDO ([facility]) Diastolic blood pressure 79 mm[Hg] 79 mm[Hg] WALDO ([facility]) Body height 64.75 [in_i] 64.75 [in_i] W[facility] ([facility]) Body mass index (BMI) [Ratio] 48.07 kg/m2 48.07 kg/m2 W[facility] ([facility]) Systolic blood pressure 127 mm[Hg] 127 mm[Hg] [facility] Body weight 4569.6 [oz_av] 4569.6 [oz_av] ATHEN A ([facility]) Diastolic blood pressure 79 mm[Hg] 79 mm[Hg] WALDO ([facility]) Body height 64.75 [in_i] 64.75 [in_i] [facility] ([facility]) Systolic blood pressure 127 mm[Hg] 127 mm[Hg] [facility] Body weight 4569.6 [oz_av] 4569.6 [oz_av] ATHEN A ([facility]) Body mass index (BMI) [Ratio] 48.07 kg/m2 48.07 kg/m2 WALDO ([facility]) Diastolic blood pressure 79 mm[Hg] 79 mm[Hg] WALDO ([facility]) Body height 64.75 [in_i] 64.75 [in_i] [facility] ([facility]) Body mass index (BMI) [Ratio] 48.07 kg/m2 48.07 kg/m2 [facility] ([facility]) Systolic blood pressure 127 mm[Hg] 127 mm[Hg] A THENA ([facility]) Body weight 4569.6 [oz_av] 4569.6 [oz_av] ATHEN A ([facility]) Diastolic blood pressure 79 mm[Hg] 79 mm[Hg] WALDO ([facility]) Body height 64.75 [in_i] 64.75 [in_i] [facility] ([facility]) Body mass index (BMI) [Ratio] 48.07 kg/m2 48.07 kg/m2 [facility] ([facility]) Systolic blood pressure 127 mm[Hg] 127 mm[Hg] A THENA ([facility]) Body weight 4569.6 [oz_av] 4569.6 [oz_av] ATHEN A ([facility]) Diastolic blood pressure 79 mm[Hg] 79 mm[Hg] WALDO ([facility]) Body height 64.75 [in_i] 64.75 [in_i] [facility] ([facility]) Body mass index (BMI) [Ratio] 48.07 kg/m2 48.07 kg/m2 [facility] ([facility]) Systolic blood pressure 127 mm[Hg] 127 mm[Hg] [facility] Body weight 4569.6 [oz_av] 4569.6 [oz_av] ATHEN A ([facility]) Diastolic blood pressure 79 mm[Hg] 79 mm[Hg] WALDO ([facility]) Body height 64.75 [in_i] 64.75 [in_i] WAL[facility] ([facility]) Body mass index (BMI) [Ratio] 48.07 kg/m2 48.07 kg/m2 [facility] ([facility]) Systolic blood pressure 127 mm[Hg] 127 mm[Hg] A THENA ([facility]) Body weight 4569.6 [oz_av] 4569.6 [oz_av] ATHEN A ([facility]) Diastolic blood pressure 79 mm[Hg] 79 mm[Hg] WALDO ([facility]) Body height 64.75 [in_i] 64.75 [in_i] [facility]DO ([facility]) Body mass index (BMI) [Ratio] 48.07 kg/m2 48.07 kg/m2 WALDO ([facility]) Systolic blood pressure 127 mm[Hg] 127 mm[Hg] A THENA ([facility]) Body weight 4569.6 [oz_av] 4569.6 [oz_av] ATHEN A ([facility]) Patient Treatment Plan of Care Planned Activity Planned Date Details Description Data Source (s) Prednisone 20 MG Oral Tablet WALDO ([facility]) Escitalopram 10 MG Oral Tablet WALDO ([facility]) Cyclobenzaprine hydrochloride 10 MG Oral Tablet WALDO ([facility]) Ciprofloxacin 3 MG/ML / Dexamethasone 1 MG/ML Otic Suspension [Cipr odex] WADLO ([facility]) varenicline 1 MG Oral Tablet WALDO ([facility]) Azithromycin 250 MG Oral Tablet WALDO ([facility]) Prednisone 20 MG Oral Tablet [facility] ([facility]) Hydrocortisone 10 MG/ML / Neomycin 3.5 M G/ML / Polymyxin B 32335 UNT/ML Otic Solution [facility] ([facility]) Escitalopram 10 MG Oral Tablet [facility] ([facility]) Cyclobenzaprine hydrochloride 10 MG Oral Tablet [facility] ([facility]) Ciprofloxacin 3 MG/ML / Dexamethasone 1 MG/ML Otic Suspension [Cipr odex] [facility] ([facility]) varenicline 1 MG Oral Tablet [facility] ([facility]) Azithromycin 250 MG Oral Tablet [facility] ([facility]) Prednisone 20 MG Oral Tablet [facility] ([facility]) Hydrocortisone 10 MG/ML / Neomycin 3.5 M G/ML / Polymyxin B [id number] UNT/ML Otic Solution [facility] ([facility]) Escitalopram 10 MG Oral Tablet [facility] ([facility]) Cyclobenzaprine hydrochloride 10 MG Oral Tablet [facility] ([facility]) Ciprofloxacin 3 MG/ML / Dexamethasone 1 MG/ML Otic Suspension [Cipr odex] [facility] ([facility]) varenicline 1 MG Oral Tablet [facility] ([facility]) Azithromycin 250 MG Oral Tablet [facility] ([facility]) Prednisone 20 MG Oral Tablet [facility] ([facility]) Hydrocortisone 10 MG/ML / Neomycin 3.5 M G/ML / Polymyxin B 66049 UNT/ML Otic Solution [facility] ([facility]) Escitalopram 10 MG Oral Tablet [facility] ([facility]) Cyclobenzaprine hydrochloride 10 MG Oral Tablet [facility] ([facility]) Ciprofloxacin 3 MG/ML / Dexamethasone 1 MG/ML Otic Suspension [Cipr odex] [facility] ([facility]) varenicline 1 MG Oral Tablet [facility] ([facility]) Azithromycin 250 MG Oral Tablet [facility] ([facility]) Prednisone 20 MG Oral Tablet [facility] ([facility]) Hydrocortisone 10 MG/ML / Neomycin 3.5 M G/ML / Polymyxin B [id number] UNT/ML Otic Solution [facility] ([facility]) Escitalopram 10 MG Oral Tablet [facility] ([facility]) Cyclobenzaprine hydrochloride 10 MG Oral Tablet [facility] ([facility]) Ciprofloxacin 3 MG/ML / Dexamethasone 1 MG/ML Otic Suspension [Cipr odex] [facility] ([facility]) varenicline 1 MG Oral Tablet [facility] ([facility]) Azithromycin 250 MG Oral Tablet [facility] ([facility]) Prednisone 20 MG Oral Tablet [facility] ([facility]) Hydrocortisone 10 MG/ML / Neomycin 3.5 M G/ML / Polymyxin B [id number] UNT/ML Otic Solution [facility] ([facility]) Escitalopram 10 MG Oral Tablet [facility] ([facility]) Cyclobenzaprine hydrochloride 10 MG Oral Tablet [facility] ([facility]) Ciprofloxacin 3 MG/ML / Dexamethasone 1 MG/ML Otic Suspension [Cipr odex] [facility] ([facility]) varenicline 1 MG Oral Tablet [facility] ([facility]) Azithromycin 250 MG Oral Tablet [facility] ([facility])
== END 2021-02-22 22:18 | disposition left against medical advice (07) ==
LOC: M ED 20:28
DX: Z53.21 Procedure and treatment not carried out due to patient leaving prior to being seen by health care provider (principal)

== ENCOUNTER → 2021-10-17 | Outpatient (CLI) | payer MEDICARE, MEDICAID ==
[~2021-10-17] MED LIST changes: +BUPR150T12; +DULO1CAP5; +HYDR-4571; -TRIA37.53 PO; +TRIA37.577; +TRIA37.577 PO
== END ==
LOC: M WHC 09:49
PROVIDERS: ATTEND Family Medicine Addiction Medicine
DX: N64.4 Mastodynia (principal); Z80.3 Family history of malignant neoplasm of breast
CPT/HCPCS: 77066; G0279

== ENCOUNTER → 2021-10-30 | Outpatient (CLI) | payer MEDICARE, MEDICAID | LOC: M PLALAB 14:40 | PROVIDERS: ATTEND Surgery | DX: Z13.9 Encounter for screening, unspecified (principal); Z80.3 Family history of malignant neoplasm of breast ==

== ENCOUNTER 2022-01-12 21:29 | Emergency (ER) | payer MEDICARE, MEDICAID ==
[~2022-01-12] VITALS: Ht 165.1 cm; Wt 136.4 kg
[2022-01-12 21:29] VITALS: BP 131/71
[2022-01-13] MEDS ORDERED: KETOROLAC TROMETHAMINE 10 MG TAB PO ONE (00:15)
== END 2022-01-13 03:07 | disposition home or self-care (01) ==
LOC: M ED 21:29
DX: M25.561 Pain in right knee (principal); I10 Essential (primary) hypertension; E78.5 Hyperlipidemia, unspecified; J45.909 Unspecified asthma, uncomplicated; K21.9 Gastro-esophageal reflux disease without esophagitis; F41.9 Anxiety disorder, unspecified; F32.A Depression, unspecified; Z88.0 Allergy status to penicillin; Z88.1 Allergy status to other antibiotic agents; Z91.040 Latex allergy status; Z79.51 Long term (current) use of inhaled steroids; Z79.899 Other long term (current) drug therapy

== ENCOUNTER → 2022-02-02 | Outpatient (CLI) | payer MEDICAID, MEDICARE | LOC: M PLARAD 09:34 | PROVIDERS: ATTEND Orthopaedic Surgery Adult Reconstructive Orthopaedic Surgery | DX: M22.2X1 Patellofemoral disorders, right knee (principal) ==

== ENCOUNTER → 2022-06-14 | Outpatient (CLI) | payer MEDICARE, MEDICAID | LOC: M SOG 09:11 | PROVIDERS: ATTEND Physician Assistant | DX: Z53.9 Procedure and treatment not carried out, unspecified reason (principal) ==

== ENCOUNTER → 2022-11-13 | Outpatient (REF) | payer MEDICARE, MEDICAID ==
[2022-11-13 17:33] LABS: ALBUMIN 3.5 G/DL (3.2-5.2); ALKALINE PHOSPHATASE 111 U/L (46-116); ALT/SGPT 26 U/L (7.0-40); AST/SGOT 18 U/L (<34); BILIRUBIN,TOTAL 0.4 MG/DL (0.3-1.2); BLOOD UREA NITROGEN 8 MG/DL (9-23); CALCIUM LEVEL 9.7 MG/DL (8.5-10.1); CARBON DIOXIDE LEVEL 31 MMOL/L (20-31); CHLORIDE LEVEL 97 MMOL/L (98-107); CHOLESTEROL LEVEL 149 MG/DL (<200); CHOLESTEROL RISK RATIO 3.42 (<5); CREATININE FOR GFR 0.74 MG/DL (0.55-1.30); GLOMERULAR FILTRATION RATE > 60.0 (>58); GLUCOSE, FASTING 110 MG/DL (60-100); HDL CHOLESTEROL 43.5 MG/DL (>40); LDL CHOLESTEROL 71.5 MG/DL (<100); NON-HDL-C 105.5 MG/DL; POTASSIUM SERUM 3.7 MMOL/L (3.5-5.1); SODIUM LEVEL 137 MMOL/L (136-145); THYROID STIMULATING HORMONE 2.588 uIU/ML (0.55-4.78); TOTAL PROTEIN 7.2 G/DL (5.7-8.2); TRIGLYCERIDES LEVEL 170 MG/DL (<150)
[2022-11-13 17:46] LABS: HEMOGLOBIN A1c 5.8 % (4.0-6.0)
== END ==
LOC: M LAB REF 16:38
PROVIDERS: ATTEND Family Medicine Addiction Medicine
DX: R73.9 Hyperglycemia, unspecified (principal)

== ENCOUNTER → 2023-05-20 | Outpatient (CLI) | payer MEDICARE, MEDICAID | LOC: M WHC 13:05 | PROVIDERS: ATTEND Family Medicine Addiction Medicine | DX: N64.4 Mastodynia (principal); Z80.3 Family history of malignant neoplasm of breast | CPT/HCPCS: 77066; G0279 ==

== ENCOUNTER 2023-06-26 17:57 | Emergency (ER) | payer MEDICARE, MEDICAID ==
[~2023-06-26] VITALS: Ht 165.1 cm; Wt 145.4 kg
[2023-06-26 18:46] VITALS: TEMP 98.7
[2023-06-27] MEDS: IBUPROFEN 800 MG TAB PO ONE (00:11)
[2023-06-27 00:15] VITALS: BP 128/68
[2023-06-27 00:27] VITALS: O2SAT 95
== END 2023-06-27 00:32 | disposition home or self-care (01) ==
LOC: M ED 17:57
DX: S00.12XA Contusion of left eyelid and periocular area, initial encounter (principal); Y04.0XXA Assault by unarmed brawl or fight, initial encounter; I10 Essential (primary) hypertension; F32.A Depression, unspecified; F41.1 Generalized anxiety disorder; M54.50 Low back pain, unspecified; Y92.009 Unspecified place in unspecified non-institutional (private) residence as the place of occurrence of the external cause; Y93.89 Activity, other specified; Y99.9 Unspecified external cause status; Z88.0 Allergy status to penicillin; Z88.1 Allergy status to other antibiotic agents; Z91.040 Latex allergy status; Z79.52 Long term (current) use of systemic steroids; Z79.84 Long term (current) use of oral hypoglycemic drugs; Z79.899 Other long term (current) drug therapy

== ENCOUNTER → 2024-04-17 | Outpatient (REF) | payer MEDICARE, MEDICAID ==
[~2024-04-17] MED LIST changes: +GABA-1172 PO; -GABA-282 PO
== END ==
LOC: M LAB REF 12:18
PROVIDERS: ATTEND Physician Assistant
DX: J02.9 Acute pharyngitis, unspecified (principal)

== ENCOUNTER → 2024-05-09 | Outpatient (CLI) | payer MEDICARE | LOC: M RAD 14:31 | PROVIDERS: ATTEND Family Medicine Addiction Medicine | DX: M25.561 Pain in right knee (principal); M25.461 Effusion, right knee; M71.21 Synovial cyst of popliteal space [Baker], right knee; S83.241A Other tear of medial meniscus, current injury, right knee, initial encounter; X58.XXXA Exposure to other specified factors, initial encounter; Y92.9 Unspecified place or not applicable; Y93.9 Activity, unspecified; Y99.9 Unspecified external cause status ==

== ENCOUNTER → 2025-02-01 | Outpatient (REF) | payer MEDICARE ==
[2025-02-01 15:21] LABS: ALT/SGPT 30 U/L (7.0-40); AST/SGOT 28 U/L (<34); CALCIUM LEVEL 10.1 MG/DL (8.5-10.1); CARBON DIOXIDE LEVEL 27 MMOL/L (20-31); CHLORIDE LEVEL 100 MMOL/L (98-107); CHOLESTEROL LEVEL 151 MG/DL (<200); CHOLESTEROL RISK RATIO 3.36 (<5); CREATININE FOR GFR 0.79 MG/DL (0.55-1.30); GLOMERULAR FILTRATION RATE > 90.0 (>58); LDL CHOLESTEROL 71.3 MG/DL (<100); NON-HDL-C 106.1 MG/DL; POTASSIUM SERUM 4.2 MMOL/L (3.5-5.1); SODIUM LEVEL 140 MMOL/L (136-145); TRIGLYCERIDES LEVEL 174 MG/DL (<150)
[2025-02-01 16:09] LABS: ESTIMATED AVERAGE GLUCOSE 134.0 MG/DL (60-110)
== END ==
LOC: M LAB REF 14:27
PROVIDERS: ATTEND Family Medicine Addiction Medicine
DX: E78.5 Hyperlipidemia, unspecified (principal)

== ENCOUNTER → 2025-03-11 | Outpatient (CLI) | payer MEDICARE, MEDICAID | LOC: M PLARAD 14:20 | PROVIDERS: ATTEND Family Medicine Addiction Medicine | DX: R41.3 Other amnesia (principal); R51.9 Headache, unspecified ==